=== PATIENT | female | born 1940 | race Caucasian/White ===

== ENCOUNTER 2017-12-25 08:57 | Outpatient (CLI) | payer MEDICARE, OTHER ==
--- NOTE | 2017-12-26 14:11 | DEXA Report ---
EXAM: DEXA SCAN 12/25/2017 INDICATION: Postmenopausal. TECHNIQUE: Dual energy x-ray absorptiometry (DXA) was performed on a [employer] system. Regions measured are the AP spine, femoral neck, and, if needed, forearm. COMPARISON: None. In accordance with the International Society for Clinical Densitometry (ISCD) guidelines, data from previous exams may be reanalyzed using current recommendations and techniques. This is done to allow a more accurate basis for comparison with the current study. FINDINGS Data for the lumbar spine is as follows: REGION BMD (g/cm/cm) T-SCORE Z-SCORE L1 0.715 -3.5 -1.5 L2 0.831 -3.1 -1.1 L3 0.810 -3.2 -1.3 L4 1.003 -1.6 0.3 L1-L4 0.861 -2.7 -0.7 NOTE: All evaluable vertebrae are used for classification. Data for the hip is as follows: REGION BMD (g/cm/cm) T-SCORE Z-SCORE Neck 0.665 -2.7 -0.5 TOTAL 0.691 -2.5 -0.5 NOTE: The femoral neck or total proximal femur, whichever is lowest, is used for classification. IMPRESSION WHO CLASSIFICATION BASED ON THE INTERNATIONAL REFERENCE STANDARD IS OSTEOPOROSIS. FRACTURE RISK IS HIGH. RECOMMENDATION: Patients with diagnosis of osteoporosis or osteopenia should have regular bone mineral density assessment. For those eligible for Medicare, routine testing is allowed once every 2 years. Testing frequency can be increased for patients who have rapidly progressing disease or for those who are receiving medical therapy to restore bone mass. COMMENT World Health Organization (WHO) definitions for osteoporosis and osteopenia: NORMAL BMD: T-score at 1.0 or higher, fracture risk is low. OSTEOPENIA BMD: T-score between 1.0 and -2.5, fracture risk is increased. OSTEOPOROSIS BMD: T-score at 2.5 or lower, fracture risk high. National Osteoporosis Foundation recommends: 1. Obtain adequate dietary calcium (at least 1200 mg per day) and vitamin D (400 -800 international units per day). 2. Participate, as appropriate, in regular weightbearing and muscle- strengthening exercise. 3. Avoid tobacco use and reduce alcohol and caffeine intake. 4. For more detailed information see the website at www.NOF.org. TD: 12/25/2017 14:28 MTDD
== END 2017-12-25 08:58 | disposition home or self-care (01) ==
LOC: RT 08:57
PROVIDERS: ATTEND Internal Medicine
DX: Z13.820 Encounter for screening for osteoporosis (principal); M81.0 Age-related osteoporosis without current pathological fracture; Z78.0 Asymptomatic menopausal state; J45.909 Unspecified asthma, uncomplicated
CPT/HCPCS: 77080; 94010

== ENCOUNTER 2018-05-16 13:32 | Outpatient (CLI) | payer MEDICARE, OTHER ==
--- NOTE | 2018-05-19 14:32 | Mammography Report ---
Reason: ROUTINE MAMMO, HX BREAST CA Procedure Date: 05/16/2018 Accession Number: [id number] / [id number] Procedure: INDRA - Screening Mammo Dig Bilat CPT Code: FULL RESULT: EXAM: Screening Mammo Dig Bilat DATE: 05/16/2018 2:41 PM CLINICAL HISTORY: 77-year-old female with right breast stage I breast cancer status post lumpectomy. TECHNIQUE: Bilateral CC and MLO views were obtained. COMPARISON: 04/19/2016, 04/08/2014, 05/11/2013, 06/21/2012. FINDINGS: The breasts demonstrate heterogeneously dense fibroglandular parenchyma bilaterally. Postsurgical changes are seen in the bilateral breasts, typically benign. Typically benign coarse calcifications are also identified bilaterally. No suspicious masses, clustered microcalcifications, or regions of architectural distortion are identified. IMPRESSION: Benign findings RECOMMENDATION: Routine annual screening unless otherwise clinically indicated. BIRADS CATEGORY 2: Benign findings STANDARD QUALIFYING STATEMENTS: 1. This examination was reviewed without the aid of Computer-Aided Detection (CAD). 2. A negative or benign imaging report should not delay biopsy if clinically suspicious findings are present. Consider surgical consultation if warrented. More than 5% of cancers are not identified by imaging. 3. Dense breasts may obscure an underlying neoplasm.
== END 2018-05-16 13:33 | disposition home or self-care (01) ==
LOC: DI 13:32
PROVIDERS: ATTEND Internal Medicine
DX: Z12.31 Encounter for screening mammogram for malignant neoplasm of breast (principal); Z85.3 Personal history of malignant neoplasm of breast
CPT/HCPCS: 77067

== ENCOUNTER 2018-11-06 07:02 | Outpatient (CLI) | payer MEDICARE, OTHER ==
--- NOTE | 2018-11-06 13:37 | Ultrasound Report ---
Reason: OTHER SPECIFIED ABNORMAL UTERINE AND VAGINAL BLEED Procedure Date: 11/06/2018 Accession Number: [id number] / [id number] Procedure: US - Pelvic w/Transvaginal CPT Code: FULL RESULT: EXAM: PELVIC ULTRASOUND EXAM DATE: 11/06/2018 07:27 AM. CLINICAL HISTORY: Other specified abnormal uterine and vaginal bleed. COMPARISON: None. TECHNIQUE: Realtime transabdominal pelvic scan performed to identify the uterus and adnexa and as an overview of other pelvic structures, followed by transvaginal scan to provide greater detail of the uterus and adnexa, with static image documentation. FINDINGS: Uterus: 10.9 x 6.3 x 6.8 cm, volume 245 cc. Anteverted position. Normal overall size and echotexture of the myometrium. Masses: None. Endometrium: There is a complex cystic and solid 6.3 x 4.9 x 5.0 cm mass replacing the endometrium, flow is seen peripherally by color Doppler. Cervix: Unremarkable. The ovaries were not seen. Free Fluid: None. Other: None. IMPRESSION: Complex cystic and solid endometrial mass as described. PHILLIP The call report notification system was initiated by Dr. Cleve Garza at 01:26 PM on 11/06/2018. ADDENDUM: 11/06/18 13:54 The above call report findings were discussed with Dr. Chin by Dr. Cleve Garza at 01:54 PM on 11/06/2018.
== END 2018-11-06 07:03 | disposition home or self-care (01) ==
LOC: DI 07:02
PROVIDERS: ATTEND Specialist
DX: N85.9 Noninflammatory disorder of uterus, unspecified (principal); N85.8 Other specified noninflammatory disorders of uterus
CPT/HCPCS: 76830; 76856

== ENCOUNTER 2018-12-01 10:19 | Outpatient (CLI) | payer MEDICARE, OTHER | END 2018-12-01 10:20 | disposition home or self-care (01) | LOC: RT 10:19 | PROVIDERS: ATTEND Obstetrics & Gynecology Gynecologic Oncology | DX: Z01.810 Encounter for preprocedural cardiovascular examination (principal); N85.9 Noninflammatory disorder of uterus, unspecified; N95.0 Postmenopausal bleeding ==

== ENCOUNTER 2024-03-10 14:36 | Outpatient (CLI) | payer MEDICARE ==
--- NOTE | 2024-03-10 15:46 | XRAY Report ---
PROCEDURE: Chest 2V INDICATIONS: COUGH TECHNIQUE: 2 views of the chest were acquired. COMPARISON: CT chest 04/19/2016 FINDINGS: Surgical changes and devices: None. Lungs and pleura: No pleural effusions or pneumothorax. Lungs are clear. Mediastinum: Mediastinal contours appear normal. Heart size is normal. Bones and chest wall: No suspicious bony lesions. Overlying soft tissues appear unremarkable. IMPRESSION: No acute cardiopulmonary process. Reviewed by: Yeni Hester MD on 03/10/2024 3:45 PM PDT Approved by: Yeni Hester MD on 03/10/2024 3:45 PM PDT Station ID: [id number]
== END 2024-03-10 14:37 | disposition home or self-care (01) ==
LOC: DI 14:36
PROVIDERS: ATTEND Student in an Organized Health Care Education/Training Program
DX: R05.9 Cough, unspecified (principal)

== ENCOUNTER 2024-03-17 08:00 | Outpatient (CLI) | payer MEDICARE | END 2024-03-17 23:59 | disposition home or self-care (01) | LOC: LAB.N 08:00 | PROVIDERS: ATTEND Family Medicine | DX: R05.9 Cough, unspecified (principal) ==

== ENCOUNTER 2024-07-20 09:46 | Inpatient (IN) ==
[2024-07-20] MEDS: DEXAMETHASONE 10 MG/ML VIAL IVP STA (09:55)
[2024-07-20 10:04] LABS: BASOPHILS # (AUTO) 0.1 10^3/uL (0.0-0.1); BASOPHILS % (AUTO) 0.7 %; EOSINOPHILS # (AUTO) 1.1 10^3/uL (0.0-0.7); HCT - HEMATOCRIT 37.8 % (37.0-47.0); HGB - HEMOGLOBIN 13.1 g/dL (12.0-16.0); LYMPHOCYTES # (AUTO) 1.2 10^3/uL (1.5-3.5); LYMPHOCYTES % (AUTO) 8.8 %; MEAN CORPUSCULAR HEMOGLOBIN 31.6 pg (27.0-31.0); MEAN CORPUSCULAR HGB CONC 34.7 g/dL (32.0-36.0); MEAN CORPUSCULAR VOLUME 91.3 fL (81.0-99.0); MEAN PLATELET VOLUME 9.2 fL (7.9-10.8); MONOCYTES # (AUTO) 0.9 10^3/uL (0.0-1.0); MONOCYTES % (AUTO) 6.6 %; NEUTROPHILS # (AUTO) 10.2 10^3/uL (1.5-6.6); NEUTROPHILS % (AUTO) 75.3 %; PLT - PLATELET COUNT 291 10^3/uL (130-450); RED BLOOD COUNT 4.14 10^6/uL (4.20-5.40); WHITE BLOOD COUNT 13.6 x10^3/uL (4.8-10.8)
--- NOTE | 2024-07-20 10:11 | XRAY Report ---
PROCEDURE: XR Chest 1V INDICATIONS: DYSPNEA TECHNIQUE: One view of the chest was acquired. COMPARISON: Chest x-ray 07/16/2024 FINDINGS: Surgical changes and devices: None. Lungs and pleura: No pleural effusions or pneumothorax. Lungs are clear. Mediastinum: Aortic arch calcifications. Mediastinal contours otherwise appear normal. Heart size is normal. Bones and chest wall: Diffuse osseous demineralization. Right axillary surgical clips. Left breast s urgical clips. IMPRESSION: No acute cardiothoracic process. Reviewed by: Siddharth Tran MD on 07/20/2024 10:10 AM [facility] Approved by: Siddharth Tran MD on 07/20/2024 10:10 AM [facility] Station ID: [id number]
[2024-07-20 10:20] LABS: RBC MORPHOLOGY (MULTIPLE) 1+ ANISOCYTOSIS (NORMAL); SLIDE REVIEW? Indicated
[2024-07-20 10:22] LABS: ALBUMIN 4.1 g/dL (3.2-5.5); ALBUMIN/GLOBULIN RATIO 1.6 (1.0-2.2); BILIRUBIN,TOTAL 0.5 mg/dL (0.2-1.0); CALCIUM 9.2 mg/dL (8.5-10.3); CREATININE 0.6 mg/dL (0.6-1.3); TOTAL PROTEIN 6.7 g/dL (6.4-8.9)
[2024-07-20 10:32] LABS: ABG PH 7.49 (7.35-7.45)
[2024-07-20 10:33] LABS: ABG BASE EXCESS 0.6 mmol/L (-2.0-3.0); ABG OXYGEN SATURATION 89 % (94-98); ABG PCO2 31 mmHg (34-45); ABG PO2 51 mmHg (80-100); ABG TCO2 23.9 MMOL/L (21.0-29.0)
[2024-07-20] MEDS ORDERED: iohexoL-300 100 ML VIAL ONE (10:50)
[2024-07-20 11:08] LABS: B. PARAPERTUSSIS- RESP PCR PAN NOT DETECTED; B. PERTUSSIS- RESP PCR PANEL NOT DETECTED; C. PNEUMONIAE- RESP PCR PANEL NOT DETECTED; CORONAVIRUS 229E-RESP PCR NOT DETECTED; CORONAVIRUS HKU1-RESP PCR NOT DETECTED; CORONAVIRUS NL63-RESP PCR NOT DETECTED; CORONAVIRUS OC43-RESP PCR NOT DETECTED; HUMAN METAPNEUMOVIRUS NOT DETECTED; INFLUENZA A- RESP PCR PANEL NOT DETECTED; INFLUENZA B - RESP PCR PANEL NOT DETECTED; M. PNEUMONIAE- RESP PCR PANEL NOT DETECTED; PARAINFLUENZA VIRUS 1 NOT DETECTED; PARAINFLUENZA VIRUS 2 NOT DETECTED; PARAINFLUENZA VIRUS 3 NOT DETECTED; PARAINFLUENZA VIRUS 4 NOT DETECTED; RHINOVIRUS/ENTEROVIRUS NOT DETECTED; RSV- RESP PCR PANEL NOT DETECTED; SARS-CoV-2 -RESP PCR PANEL NOT DETECTED
--- NOTE | 2024-07-20 12:05 | HISTORY & PHYSICAL EXAMINATION ---
Chief Complaint <VAMSI Antonio - Last Filed: 07/20/24 17:12> Chief Complaint Chief Complaint: I can't breathe History of Present Illness <VAMSI Antonio - Last Filed: 07/20/24 17:12> Admitted From Admitted From:: ED History Obtained From Records Reviewed: outpatient [facility] records, last ED visit History obtained from: Patient Exam Limitations: none History of Present Illness HPI Comment/Other: Presents to the emergency department for the second time inside of a week with complaints of shortness of breath. She has been struggling with a cough for about 6 months. She states that she has been getting increasingly more short of breath and having more and more cough at home. Several different courses of steroids have been prescribed. It is not clear that she has taken all of them. I think she does not like the way the steroids make her feel. She has been compliant with her albuterol and Advair at home. She has a referral in progress to pulmonology. She has not gotten this appointment scheduled. At home she has been having worsening dyspnea which is worse on exertion. She is able to lay down and get comfortable at night She has never smoked in her lifetime. For CODE STATUS she is DNR/DNI. Her daughter who lives in [place] is her surrogate decision-maker Meds/Allgy <VAMSI Antonio - Last Filed: 07/20/24 17:12> Home Medications Ambulatory Orders Medication Instructions Recorded Confirmed ipratropium 0.5 mg-albuterol 3 mg 3 ml inhalation QID PRN shortness 07/16/24 07/20/24 (2.5 mg base)/3 mL nebulization of breath #90 mL soln albuterol sulfate 2.5 mg/3 mL 2.5 mg inhalation Q4H PRN 07/17/24 07/20/24 (0.083 %) solution for nebulization shortness of breath or wheezing albuterol sulfate 90 mcg/actuation 1 puff inhalation QID PRN 07/17/24 07/20/24 aerosol inhaler shortness of breath or wheezing fluticasone propionate 115 2 puff inhalation DAILY 07/17/24 07/20/24 mcg-salmeterol 21 mcg/actuation HFA inhaler (Advair HFA) carbamazepine 300 mg 300 mg PO DAILY 07/20/24 07/20/24 capsule,extended release [id number] fluticasone propionate 50 2 spray intranasal BID 07/20/24 07/20/24 mcg/actuation nasal spray,suspension Allergies Allergies Allergy/AdvReac Type Severity Reaction Status Date / Time No Known Drug Allergies Allergy Verified 07/20/24 09:53 PFSH <VAMSI Antonio - Last Filed: 07/20/24 17:12> Medical History Medical History (Updated 07/20/24 @ 12:49 by VAMSI Antonio) Trigeminal neuralgia History of melanoma History of Mohs micrographic surgery for skin cancer History of breast cancer Asthma History of rheumatic fever as a child Surgical History Surgical History (Updated 07/16/24 @ 10:24 by Kristina Peralta RN) History of hysterectomy History of mastectomy Family History Family History (Updated 07/17/24 @ 07:32 by Sg Jeorme) Mother Colon cancer Brother Lung cancer Father Heart attack Social History Social History (Updated 07/20/24 @ 12:35 by VAMSI Antonio) Smoking Status: Never smoker Second hand tobacco smoke exposure: No Do you dip or chew tobacco?: No Do you vape?: No Relationship: Level: Assisted Home Mobility Equipment: Wheeled walker Do you feel safe in your home environment?: Yes Suffered physical, verbal, emotional, or financial abuse?: No POLST Patient has POLST: No POLST Status: DNR Review of Systems <VAMSI Antonio - Last Filed: 07/20/24 17:12> Status of ROS: 10 or more systems reviewed and unremarkable except as noted in history and below Constitutional Reports: Fatigue, Malaise and Poor appetite; Denies: Fever or Chills Eyes Denies: Change in vision or Eye discharge Ears, nose, mouth, and throat Denies: Ear pain, Tinnitus, Change in hearing, Nasal discharge or Neck pain Cardiovascular Reports: shortness of breath with exertion; Denies: Irregular heart rate, chest pain or palpitations Respiratory Reports: Shortness of breath, Cough, SOB with exertion and Chest congestion Gastrointestinal Reports: Nausea and Poor appetite; Denies: Abdominal pain or Vomiting Genitourinary Denies: Painful urination Musculoskeletal Denies: Back pain or Neck pain Integumentary/Breast Reports: Rash Neurological Denies: Headache Psychiatric Denies: Depression Endocrine Reports: Fatigue <VAMSI Antonio - Last Filed: 07/20/24 17:12> Prior Level of Functionality: She lives independently in her own apartment here in [place]. She is an active member of [employer]. She has a daughter who lives in [place] and is able to help her when she needs it. Exam <VAMSI Antonio - Last Filed: 07/20/24 17:12> Constitutional normal general appearance HENMT normocephalic Eyes PERRL, conjunctivae normal and no scleral icterus Neck/C-Spine visual inspection normal Lymph no lymphadenopathy noted Chest inspection of chest normal and palpation of chest normal Respiratory breath sounds equal bilaterally, no wheezes (diffuse wheeze) and no retractions Cardiovascular normal heart rate noted (tachycardia, low 100's) and peripheral pulses 2+ throughout Gastrointestinal abdomen normal to inspection and nondistended Extremities normal to inspection Neurology no movement abnormality noted, no focal motor deficit noted and GCS 15 Psychiatry mental status grossly normal and oriented x3 Skin skin color normal Conclusion/Plan <VAMSI Antonio - Last Filed: 07/20/24 17:12> Problem List (1) Acute hypoxic respiratory failure: Plan: Patient was discussed with Dr Chandra, ED attending. She has had multiple outpatient encounters for cough and shortness of breath. Looking back through her vital signs, it appears that she has always maintained her oxygen saturation on room air. However today this is not the case. Today she is on 13 L via Oxymizer when I walk in the room. I am able to turn it down to 11 L and have a conversation with her and her sats did not drop drop below 92%. When she came into the emergency department today she was able to maintain an O2 sat of 90% on 4 L via nasal cannula. I do not have any information on what her oxygen saturation was at the time that EMS picked her up. Laboratory Tests 07/20/24 10:15 ABG pH 7.49 H ABG pCO2 31 L ABG pO2 51 L ABG HCO3 23.0 ABG O2 Saturation 89 L O2 Delivery Device NASAL CANNULA O2 Liters/Min 3.50 (2) Pneumonia: Plan: CTA of the thorax done 4 days ago shows new or increased moderate to severe diffuse upper and lower peribronchial heel thickening with multiple areas of bronchial feeling, mucus filling and associated diffuse upper and lower groundglass opacities. Given her current leukocytosis of 13.6 and her hypoxia I think it is reasonable to treat her for a community-acquired pneumonia. Given that we are experiencing a national shortage of IV fluids and fluid bags I will treat her with p.o. antibiotics of Augmentin 875 twice daily and azithromycin 500 mg daily, 5 and 3 days respectively. Qualifiers: Laterality: bilateral Lung location: unspecified part of lung P neumonia type: due to unspecified organism Qualified Code(s): J18.9 - Pneumonia, unspecified organism (3) COPD exacerbation: Plan: differential diagnosis would be CHF exacerbation. Her BNP 4 days ago was 60. I am going to add on a BNP to today's emergency department labs. She denies any cardiac history. She does not have a history of heart attack she did have rheumatic fever as a child but denies any history of valvular abnormalities. On her lung exam she has diffuse wheezing. Looking back at her EKGs, her EKG done on 07/16/2024 shows incomplete left bundle branch block with new onset of LVH as compared to 12/01/2018. I will repeat her BNP. Additionally I will repeat a troponin. However I think this is likely primarily a pulmonary process. (4) Trigeminal neuralgia: Plan: This is a chronic problem. She takes carbamazepine for this. We will continue her home carbamazepine. 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 She has done well. Of course metastatic breast cancer is in the differential diagnosis for her lungs, however CT a shows no lesion (6) Hyponatremia: Plan: Sodium of 128 probably related to her acute illness. I do not see any history of hyponatremia. I will start her on a regular diet and recheck her sodium in the morning. Plan I have spent 80 minutes in the care of this patient today. This includes time [id number], review and ordering of diagnostic imaging and laboratory studies and consultation with other providers.. Monitoring the patient's signs symptoms, evaluation of medication effectiveness and patient's response to treatment. Lab Results Lab results reviewed: Yes 07/20/24 09:58 07/20/24 09:58 Diagnostic Imaging Results Diagnostic Imaging Results: positive Final report reviewed Diagnostic Imaging Results Comments: CTA of the chest 07/16/2024. Chest x-ray today no acute pulmonary process Of note the patient's clinical picture appears more severe than her data would suggest EKG Results EKG Interpreted Independently: No EKG Comparison: Changed from prior EKG EKG Findings: New left bundle branch block and new LVH as compared to 2019. <Ewa Mcguire MD - Last Filed: 07/20/24 19:58> Problem List (1) Acute hypoxic respiratory failure: (2) Pneumonia: (3) COPD exacerbation: (4) Trigeminal neuralgia: (5) History of breast cancer: (6) Hyponatremia: Core Measures <VAMSI Antonio - Last Filed: 07/20/24 17:12> Anticipated LOS I expect patient to be DC'd or transferred within 96 hours.: Yes Issues Hospital Issues and Management Plan: Acute hypoxic respiratory failure, COPD exacerbation, community-acquired pneumonia Antibiotics respiratory support steroids bronchodilators DVT/VTE - Prophylaxis VTE/DVT Device ordered at admit?: Yes VTE/DVT Prophylaxis med ordered at admit?: Yes
[2024-07-20] MEDS ORDERED: oxyCODONE 5 MG TABLET PO PRN (12:38)
[2024-07-20] MEDS: IBUPROFEN 400 MG TABLET PO PRN (13:32)
[2024-07-20] MEDS: AMOX/CLAV 875 MG/125 MG TABLET PO SCH (13:32)
[2024-07-20] MEDS: BENZONATATE 100 MG CAPSULE PO PRN (13:33)
[2024-07-20] MEDS: ACETAMINOPHEN 325 MG TABLET PO PRN (13:33)
[2024-07-20] MEDS: AZITHROMYCIN 250 MG TABLET PO SCH (13:33)
[2024-07-20] MEDS: IPRATROPIUM/ALBUTEROL 3 ML NEB INH SCH (14:13)
--- NOTE | 2024-07-20 14:23 | ED Physician Documentation ---
History of Present Illness Stated complaint Stated Complaint: SOA Chief complaint Chief Complaint: Resp History obtained from History obtained from: Patient and EMS Additonal information Additional information: The patient comes to the emergency department chief complaint of dyspnea. She was diagnosed with pneumonia several days ago but feels like she is getting worse. She has a history of COPD but does not use supplemental oxygen at home. She states right now, she is just feeling dyspneic all the time. Medics state when they picked her up her oxygen saturation was 84% on room air. They tried giving her a nebulizer treatment en route them but the patient states these have not been helping. Meds/Allgy Home Medications Ambulatory Orders Medication Instructions Recorded Confirmed ipratropium 0.5 mg-albuterol 3 mg 3 ml inhalation QID PRN shortness 07/16/24 07/20/24 (2.5 mg base)/3 mL nebulization of breath #90 mL soln albuterol sulfate 2.5 mg/3 mL 2.5 mg inhalation Q4H PRN 07/17/24 07/20/24 (0.083 %) solution for nebulization shortness of breath or wheezing albuterol sulfate 90 mcg/actuation 1 puff inhalation QID PRN 07/17/24 07/20/24 aerosol inhaler shortness of breath or wheezing fluticasone propionate 115 2 puff inhalation DAILY 07/17/24 07/20/24 mcg-salmeterol 21 mcg/actuation HFA inhaler (Advair HFA) carbamazepine 300 mg 300 mg PO DAILY 07/20/24 07/20/24 capsule,extended release [id number] fluticasone propionate 50 2 spray intranasal BID 07/20/24 07/20/24 mcg/actuation nasal spray,suspension Allergies Allergies Allergy/AdvReac Type Severity Reaction Status Date / Time No Known Drug Allergies Allergy Verified 07/20/24 09:53 [facility] Medical History Medical History (Updated 07/20/24 @ 12:49 by VAMSI Antonio) Trigeminal neuralgia History of melanoma History of Mohs micrographic surgery for skin cancer History of breast cancer Asthma History of rheumatic fever as a child Surgical History Surgical History (Updated 07/16/24 @ 10:24 by Kristina Peralta RN) History of hysterectomy History of mastectomy Family History Family History (Updated 07/17/24 @ 07:32 by Sg Jerome) Mother Colon cancer Brother Lung cancer Father Heart attack Social History Social History (Updated 07/20/24 @ 12:35 by VAMSI Antonio) Smoking Status: Never smoker Second hand tobacco smoke exposure: No Do you dip or chew tobacco?: No Do you vape?: No Relationship: Level: Assisted Home Mobility Equipment: Wheeled walker Do you feel safe in your home environment?: Yes Suffered physical, verbal, emotional, or financial abuse?: No POLST Patient has POLST: No POLST Status: DNR Exam Constitutional normal general appearance Moderate respiratory distress otherwise well-appearing HENMT normocephalic, head/scalp atraumatic, external nose normal and oral mucous membranes normal Eyes EOMs intact bilaterally Neck/C-Spine visual inspection normal and supple Respiratory breath sounds equal bilaterally and clear to auscultation bilaterally Moderately labored respirations. The patient arrives on a neb. Breath sounds are clear. Cardiovascular normal heart rate noted, regular rhythm noted and no edema Gastrointestinal abdomen normal to inspection, abdomen soft to palpation, nontender to palpation and nondistended Genitourinary no CVA tenderness Extremities normal to inspection Neurology Alert, grossly intact Psychiatry mental status grossly normal Skin skin color normal Results Vitals Vitals: Oxygen O2 Source Oxymizer Oxygen Flow Rate 7 Labs Labs: Laboratory Tests 07/20/24 07/20/24 07/20/24 09:58 10:08 10:15 WBC 13.6 H RBC 4.14 L Hgb 13.1 Hct 37.8 MCV 91.3 MCH 31.6 H MCHC 34.7 RDW 12.0 Plt Count 291 MPV 9.2 Neut # (Auto) 10.2 H Lymph # (Auto) 1.2 L Chaves # (Auto) 0.9 Eos # (Auto) 1.1 H Baso # (Auto) 0.1 Absolute Nucleated RBC 0.00 Nucleated RBC % 0.0 Manual Slide Review Indicated RBC Morph Micro Appear 1+ ANISOCYTOSIS Bld Gas Analysis Time 1015 Sample Site RIGHT BRACHIAL ABG pH 7.49 H ABG pCO2 31 L ABG pO2 51 L ABG HCO3 23.0 ABG Total CO2 23.9 ABG O2 Saturation 89 L ABG Base Excess 0.6 Luis Carlos Test NOT APPLICABLE O2 Delivery Device NASAL CANNULA O2 Liters/Min 3.50 Sodium 128 L Potassium 4.0 Chloride 94 L Carbon Dioxide 26 Anion Gap 8.0 BUN 12 Creatinine 0.6 Estimated GFR (MDRD) 95 Glucose 123 H Calcium 9.2 Total Bilirubin 0.5 AST 14 ALT 14 Alkaline Phosphatase 83 Troponin I High Sens 10.7 B-Natriuretic Peptide 30 Total Protein 6.7 Albumin 4.1 Globulin 2.6 Albumin/Globulin Ratio 1.6 Lipase 12 Nasal Adenovirus (PCR) NOT DETECTED Nasal B. parapertussis DNA (PCR) NOT DETECTED Nasal Coronavir 229E PCR NOT DETECTED Nasal Coronavir HKU1 PCR NOT DETECTED Nasal Coronavir NL63 PCR NOT DETECTED Nasal Coronavir OC43 PCR NOT DETECTED Nasal Enterovir/Rhinovir PCR NOT DETECTED Nasal Influenza B PCR NOT DETECTED Nasal Influenza A PCR NOT DETECTED Nasal Parainfluen 1 PCR NOT DETECTED Nasal Parainfluen 2 PCR NOT DETECTED Nasal Parainfluen 3 PCR NOT DETECTED Nasal Parainfluen 4 PCR NOT DETECTED Nasal RSV (PCR) NOT DETECTED Nasal B.pertussis DNA PCR NOT DETECTED Nasal C.pneumoniae (PCR) NOT DETECTED Omkar Human Metapneumo PCR NOT DETECTED Nasal M.pneumoniae (PCR) NOT DETECTED Nasal SARS-CoV-2 (PCR) NOT DETECTED PD Medical Decision Making ED course Complexity details: reviewed old records, reviewed results, re-evaluated patient, considered differential and d/w patient ED course: The patient was well-dressed and though her respirations were somewhat labored, her lungs were clear. She was found to have an oxygen saturation on 8 L of oxygen with 84%. The patient did not appear as ill as her numbers and so I ordered an ABG to gain clarity on the Oxygen saturation we were getting on the monitor. The patient was switched to an oxime mask by respiratory therapy and oxygen saturations did stabilize a bit into the low to mid 90s. The patient's x-ray was surprisingly unremarkable and I suspected perhaps a COPD exacerbation. Patient's labs were also unremarkable. The patient reported feeling better on the oxime mask. The ABG supported the numbers we are getting on the certified rehabilitation counselor. I discussed the case with Dr. Mcguire and VAMSI Antonio, who agreed to admit the patient to their service. Discharge Plan Discharge Patient Disposition: [facility] DC/Xfer Interventions: ED Admission Assessment Last Done: 07/20/24 15:50
--- NOTE | 2024-07-20 15:27 | PHARMACY PROGRESS NOTE ---
Best Possible Medication History Admit Date and Time: 07/20/24 1203 Home Medications Medication Instructions Recorded Confirmed Type ipratropium 0.5 mg-albuterol 3 mg 3 ml inhalation QID PRN shortness 07/16/24 07/20/24 Rx (2.5 mg base)/3 mL nebulization of breath #90 mL soln albuterol sulfate 2.5 mg/3 mL 2.5 mg inhalation Q4H PRN 07/17/24 07/20/24 History (0.083 %) solution for nebulization shortness of breath or wheezing albuterol sulfate 90 mcg/actuation 1 puff inhalation QID PRN 07/17/24 07/20/24 History aerosol inhaler shortness of breath or wheezing fluticasone propionate 115 2 puff inhalation DAILY 07/17/24 07/20/24 History mcg-salmeterol 21 mcg/actuation HFA inhaler (Advair HFA) carbamazepine 300 mg 300 mg PO DAILY 07/20/24 07/20/24 History capsule,extended release [id number] fluticasone propionate 50 2 spray intranasal BID 07/20/24 07/20/24 History mcg/actuation nasal spray,suspension Processed by: Pharmacy Medications reviewed in ED?: Yes Medication History completed: Yes Patient Interview: Completed (by nail technicianJesus) Secondary Source(s): Insurance records [facility] Statement: As the person ultimately responsible for medication therapy, providers are able to order a medication from an existing home medication list in [facility] via the "Reconcile Routine" prior to Confirmation of that medication by data support specialist. Such practice is discouraged except when the physician, in their clinical judgment, deems that a medical need exists for a medication without regard to previous use.
[2024-07-20] MEDS: guaiFENesin 600 MG TABLET PO SCH (20:27)
[2024-07-20] MEDS: HEPARIN 5,000 UNIT/ML VIAL SUBQ SCH (20:27)
[2024-07-20] MEDS: SODIUM CHLORIDE FLUSH 0.9% 10 ML SYRINGE IVP SCH (20:29)
[2024-07-21 05:32] LABS: BASOPHILS # (AUTO) 0.1 10^3/uL (0.0-0.1); BASOPHILS % (AUTO) 0.5 %; EOSINOPHILS # (AUTO) 0.6 10^3/uL (0.0-0.7); EOSINOPHILS % (AUTO) 4.8 %; HCT - HEMATOCRIT 36.5 % (37.0-47.0); HGB - HEMOGLOBIN 12.4 g/dL (12.0-16.0); LYMPHOCYTES # (AUTO) 2.2 10^3/uL (1.5-3.5); LYMPHOCYTES % (AUTO) 18.3 %; MEAN CORPUSCULAR HEMOGLOBIN 31.3 pg (27.0-31.0); MEAN CORPUSCULAR VOLUME 92.2 fL (81.0-99.0); MEAN PLATELET VOLUME 9.1 fL (7.9-10.8); MONOCYTES % (AUTO) 8.3 %; NEUTROPHILS # (AUTO) 8.1 10^3/uL (1.5-6.6); NEUTROPHILS % (AUTO) 67.6 %; PLT - PLATELET COUNT 311 10^3/uL (130-450); RED BLOOD COUNT 3.96 10^6/uL (4.20-5.40)
[2024-07-21 05:53] LABS: CALCIUM 8.9 mg/dL (8.5-10.3); CREATININE 0.6 mg/dL (0.6-1.3); POTASSIUM 3.7 mmol/L (3.5-4.5)
[2024-07-21] MEDS: dexAMETHasone 4 MG TABLET PO SCH (08:26)
[2024-07-21] MEDS: CARBAMAZEPINE 300 MG PO SCH (09:00)
--- NOTE | 2024-07-21 09:19 | PROVIDER PROGRESS NOTE ---
Subjective Prog Note Date Prog Note Date: 07/21/24 Prog Note Time: 09:12 Subjective Subjective: She got up to the bathroom this morning and she was very very short of breath.She is having difficulty eating with Oxymizer in place. She is still on a flow rate of 7 L. OVer the course of today she has weaned off to 4L NC. She feels tired, but is getting better. She has a productive cough. When I saw her yesterday evening she said she felt like this place is a spa. I think she has been struggling so long in the outpatient environment that having comfort and treatment for her hypoxia is a great relief. Current Medications Current Medications Current Medications: Current Medications Generic Name Dose Route Start Last Admin Trade Name Freq PRN Reason Stop Dose Admin Acetaminophen 650 mg 07/20/24 12:38 07/21/24 08:26 Acetaminophen 325 Mg Tablet PO 650 mg Q4HR PRN Administration Pain 1 to 4, or Fever Albuterol 2.5 mg 07/20/24 12:38 Albuterol Neb 2.5 Mg/3 Ml INH Q4H PRN shortness of breath or wheezing Albuterol/Ipratropium 3 ml 07/20/24 15:00 07/21/24 06:49 Ipratropium/Albuterol 3 Ml Neb INH 3 ml RTQID STAS Administration Amoxicillin/Clavulanate Potassium 1 tab 07/20/24 12:03 07/21/24 08:25 Amox/Clav 875 Mg/125 Mg Tablet PO 07/24/24 21:01 1 tab BID STAS Administration Azithromycin 500 mg 07/20/24 12:03 07/21/24 08:25 Azithromycin 250 Mg Tablet PO 07/22/24 09:01 500 mg DAILY STAS Administration Benzonatate 100 mg 07/20/24 12:38 07/21/24 08:26 Benzonatate 100 Mg Capsule PO 100 mg TID PRN Administration Cough Dexamethasone 6 mg 07/21/24 09:00 07/21/24 08:26 Dexamethasone 4 Mg Tablet PO 07/24/24 09:01 6 mg DAILY STAS Administration Guaifenesin 1,200 mg 07/20/24 21:00 07/21/24 08:25 Guaifenesin 600 Mg Tablet PO 1,200 mg BID STAS Administration Heparin Sodium (Porcine) 5,000 unit 07/20/24 21:00 07/21/24 08:25 Heparin 5,000 Unit/Ml Vial SUBQ 5,000 unit BID STAS Administration Ibuprofen 400 mg 07/20/24 12:38 07/21/24 08:26 Ibuprofen 400 Mg Tablet PO 400 mg Q4HR PRN Administration Pain 1 to 4 Ondansetron HCl 4 mg 07/20/24 12:38 Ondansetron Odt 4 Mg Tablet TL Q6HR PRN Nausea / Vomiting Oxycodone HCl 5 mg 07/20/24 12:38 Oxycodone 5 Mg Tablet PO Q4HR PRN Pain 5 to 7 Carbamazepine 300 1 each 07/21/24 09:00 07/21/24 09:00 Mg Er Multiphase 12 PO 1 each Hr Tab DAILY STAS Administration Sodium Chloride 10 ml 07/20/24 12:38 Sodium Chloride Flush 0.9% 10 Ml Syringe IVP PRN PRN NEEDED PER PROVIDER ORDERS Sodium Chloride 10 ml 07/20/24 17:00 07/21/24 08:27 Sodium Chloride Flush 0.9% 10 Ml Syringe IVP 10 ml 0100,0900,1700 STAS Administration Objective Vital Signs/Intake & Output Reviewed Vital Signs: Yes Vital Signs: Vital Signs x48h Temp Pulse Pulse Resp BP Pulse Ox O2 Flow Rate 07/21/24 08:11 36.6 C 91 H 18 136/65 H 95 7 07/21/24 06:50 7 07/21/24 06:50 92 H 22 07/21/24 05:00 36.7 C 72 20 138/68 H 98 7 Intake & Output: Intake & Output 07/19/24 07/20/24 07/21/24 07/22/24 05:59 05:59 05:59 05:59 Intake Total 892 / 892 Balance 892 / 892 Weight (kg) 54.1 kg Objective General Appearance: positive No acute distress and Alert Eyes Bilateral: positive Normal inspection and PERRL ENT: positive ENT inspection nml and No signs of dehydration Neck: positive Nml inspection Respiratory: positive Chest non-tender, No respiratory distress, Wheezes (throughout, but less at bases (less air movement at bases)) and Rhonchi Cardiovascular: positive Regular rate & rhythm Abdomen: positive Non-tender and No distention Back: positive Nml inspection Skin: positive Color nml Extremities: positive Non-tender and No pedal edema Lab Results 07/21/24 05:13 07/21/24 05:13 Other Labs: Lab Results x24hrs 07/21/24 07/20/24 07/20/24 Range/Units 05:13 10:15 10:08 WBC 12.0 H (4.8-10.8) x10^3/uL RBC 3.96 L (4.20-5.40) 10^6/uL Hgb 12.4 (12.0-16.0) g/dL Hct 36.5 L (37.0-47.0) % MCV 92.2 (81.0-99.0) fL MCH 31.3 H (27.0-31.0) pg MCHC 34.0 (32.0-36.0) g/dL RDW 12.0 (12.0-15.0) % Plt Count 311 (130-450) 10^3/uL MPV 9.1 (7.9-10.8) fL Neut # (Auto) 8.1 H (1.5-6.6) 10^3/uL Lymph # (Auto) 2.2 (1.5-3.5) 10^3/uL Hyde # (Auto) 1.0 (0.0-1.0) 10^3/uL Eos # (Auto) 0.6 (0.0-0.7) 10^3/uL Baso # (Auto) 0.1 (0.0-0.1) 10^3/uL Absolute Nucleated RBC 0.00 x10^3/uL Nucleated RBC % 0.0 /100WBC Manual Slide Review RBC Morph Micro Appear (NORMAL) Bld Gas Analysis Time 1015 Sample Site RIGHT BRACHIAL ABG pH 7.49 H (7.35-7.45) ABG pCO2 31 L (34-45) mmHg ABG pO2 51 L (80-100) mmHg ABG HCO3 23.0 (22.0-26.0) mmol/L ABG Total CO2 23.9 (21.0-29.0) MMOL/L ABG O2 Saturation 89 L (94-98) % ABG Base Excess 0.6 (-2.0-3.0) mmol/L Luis Carlos Test NOT APPLICABLE O2 Delivery Device NASAL CANNULA O2 Liters/Min 3.50 LPM Sodium 129 L (135-145) mmol/L Potassium 3.7 (3.5-4.5) mmol/L Chloride 98 L (101-111) mmol/L Carbon Dioxide 28 (21-32) mmol/L Anion Gap 3.0 L (6-13) BUN 15 (6-20) mg/dL Creatinine 0.6 (0.6-1.3) mg/dL Estimated GFR (MDRD) 95 (>89) Glucose 90 (74-104) mg/dL Calcium 8.9 (8.5-10.3) mg/dL Total Bilirubin (0.2-1.0) mg/dL AST (10-42) IU/L ALT (10-60) IU/L Alkaline Phosphatase (42-121) IU/L Troponin I High Sens (2.3-14.8) ng/L B-Natriuretic Peptide (5-100) pg/mL Total Protein (6.4-8.9) g/dL Albumin (3.2-5.5) g/dL Globulin (2.1-4.2) g/dL Albumin/Globulin Ratio (1.0-2.2) Lipase (11-82) U/L Nasal Adenovirus (PCR) NOT DETECTED Nasal B. parapertussis DNA (PCR) NOT DETECTED Nasal Coronavir 229E PCR NOT DETECTED Nasal Coronavir HKU1 PCR NOT DETECTED Nasal Coronavir NL63 PCR NOT DETECTED Nasal Coronavir OC43 PCR NOT DETECTED Nasal Enterovir/Rhinovir PCR NOT DETECTED Nasal Influenza B PCR NOT DETECTED Nasal Influenza A PCR NOT DETECTED Nasal Parainfluen 1 PCR NOT DETECTED Nasal Parainfluen 2 PCR NOT DETECTED Nasal Parainfluen 3 PCR NOT DETECTED Nasal Parainfluen 4 PCR NOT DETECTED Nasal RSV (PCR) NOT DETECTED Nasal B.pertussis DNA PCR NOT DETECTED Nasal C.pneumoniae (PCR) NOT DETECTED Omkar Human Metapneumo PCR NOT DETECTED Nasal M.pneumoniae (PCR) NOT DETECTED Nasal SARS-CoV-2 (PCR) NOT DETECTED 07/20/24 Range/Units 09:58 WBC 13.6 H (4.8-10.8) x10^3/uL RBC 4.14 L (4.20-5.40) 10^6/uL Hgb 13.1 (12.0-16.0) g/dL Hct 37.8 (37.0-47.0) % MCV 91.3 (81.0-99.0) fL MCH 31.6 H (27.0-31.0) pg MCHC 34.7 (32.0-36.0) g/dL RDW 12.0 (12.0-15.0) % Plt Count 291 (130-450) 10^3/uL MPV 9.2 (7.9-10.8) fL Neut # (Auto) 10.2 H (1.5-6.6) 10^3/uL Lymph # (Auto) 1.2 L (1.5-3.5) 10^3/uL Hyde # (Auto) 0.9 (0.0-1.0) 10^3/uL Eos # (Auto) 1.1 H (0.0-0.7) 10^3/uL Baso # (Auto) 0.1 (0.0-0.1) 10^3/uL Absolute Nucleated RBC 0.00 x10^3/uL Nucleated RBC % 0.0 /100WBC Manual Slide Review Indicated RBC Morph Micro Appear 1+ ANISOCYTOSIS (NORMAL) Bld Gas Analysis Time Sample Site ABG pH (7.35-7.45) ABG pCO2 (34-45) mmHg ABG pO2 (80-100) mmHg ABG HCO3 (22.0-26.0) mmol/L ABG Total CO2 (21.0-29.0) MMOL/L ABG O2 Saturation (94-98) % ABG Base Excess (-2.0-3.0) mmol/L Luis Carlos Test O2 Delivery Device O2 Liters/Min LPM Sodium 128 L (135-145) mmol/L Potassium 4.0 (3.5-4.5) mmol/L Chloride 94 L (101-111) mmol/L Carbon Dioxide 26 (21-32) mmol/L Anion Gap 8.0 (6-13) BUN 12 (6-20) mg/dL Creatinine 0.6 (0.6-1.3) mg/dL Estimated GFR (MDRD) 95 (>89) Glucose 123 H (74-104) mg/dL Calcium 9.2 (8.5-10.3) mg/dL Total Bilirubin 0.5 (0.2-1.0) mg/dL AST 14 (10-42) IU/L ALT 14 (10-60) IU/L Alkaline Phosphatase 83 (42-121) IU/L Troponin I High Sens 10.7 (2.3-14.8) ng/L B-Natriuretic Peptide 30 (5-100) pg/mL Total Protein 6.7 (6.4-8.9) g/dL Albumin 4.1 (3.2-5.5) g/dL Globulin 2.6 (2.1-4.2) g/dL Albumin/Globulin Ratio 1.6 (1.0-2.2) Lipase 12 (11-82) U/L Nasal Adenovirus (PCR) Nasal B. parapertussis DNA (PCR) Nasal Coronavir 229E PCR Nasal Coronavir HKU1 PCR Nasal Coronavir NL63 PCR Nasal Coronavir OC43 PCR Nasal Enterovir/Rhinovir PCR Nasal Influenza B PCR Nasal Influenza A PCR Nasal Parainfluen 1 PCR Nasal Parainfluen 2 PCR Nasal Parainfluen 3 PCR Nasal Parainfluen 4 PCR Nasal RSV (PCR) Nasal B.pertussis DNA PCR Nasal C.pneumoniae (PCR) Omkar Human Metapneumo PCR Nasal M.pneumoniae (PCR) Nasal SARS-CoV-2 (PCR) Assessment/Plan Problem List (1) Acute hypoxic respiratory failure: Impression: She has had multiple outpatient encounters for cough and shortness of breath. Looking back through her vital signs, it appears that she has always maintained her oxygen saturation on room air at her outpatient visits. This is not the case at the time of admit. Her oxygen saturation is improving since admit. She was on 13L oxymizer in the ED, she has been decreased through the day, and is down onto 5L via oxymizer after lunch today, and 4L around dinner time. I do not have any information on what her oxygen saturation was at the time that EMS picked her up. 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 Given her current leukocytosis of 13.6 and her hypoxia she is being treated for a community-acquired pneumonia. Given that we are experiencing a national shortage of IV fluids and fluid bags I will treat her with p.o. antibiotics of Augmentin 875 twice daily and azithromycin 500 mg daily, 5 and 3 days respectively. Her leukocytosis is improving to 12.0 today Qualifiers: Laterality: bilateral Lung location: unspecified part of lung P neumonia type: due to unspecified organism Qualified Code(s): J18.9 - Pneumonia, unspecified organism (3) COPD exacerbation: Impression: differential diagnosis would be CHF exacerbation. Her BNP 4 days ago was 60. BN P and troponin were negative at 30 and 10.7. She denies any cardiac history. She does not have a history of heart attack. she did have rheumatic fever as a child but denies any history of valvular abnormalities. On her lung exam she has diffuse wheezing. Looking back at her EKGs, her EKG done on 07/16/2024 shows incomplete left bundle branch block with new onset of LVH as compared to 12/01/2018. I think this is likely primarily a pulmonary process. (4) Trigeminal neuralgia: Impression: This is a chronic problem. She takes carbamazepine for this. 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 She has done well. Of course metastatic breast cancer is in the differential diagnosis for her lungs, however CT a shows no lesion (6) Hyponatremia: Impression: Sodium of 128 probably related to her acute illness. I do not see any history of hyponatremia. Sodium is 129 this morning. I have spent 45 minutes in the care of this patient today. This includes time [id number], review and ordering of diagnostic imaging and laboratory studies.. Monitoring the patient's signs symptoms, evaluation of medication effectiveness and patient's response to treatment.
[2024-07-21] MEDS: BACITRACIN ZINC OINT 1 PACKET TOP SCH (11:04)
[2024-07-21] MEDS: MULTIVITAMIN W/MINERALS TABLET PO SCH (17:07)
[2024-07-22] MEDS: ALBUTEROL NEB 2.5 MG/3 ML INH PRN (03:36)
[2024-07-22 06:07] LABS: CALCIUM 8.8 mg/dL (8.5-10.3); CREATININE 0.6 mg/dL (0.6-1.3); POTASSIUM 3.7 mmol/L (3.5-4.5)
[2024-07-22 06:17] LABS: BASOPHILS % (AUTO) 0.7 %; EOSINOPHILS % (AUTO) 8.8 %; HCT - HEMATOCRIT 37.7 % (37.0-47.0); HGB - HEMOGLOBIN 12.6 g/dL (12.0-16.0); LYMPHOCYTES % (AUTO) 21.2 %; MEAN CORPUSCULAR HEMOGLOBIN 31.3 pg (27.0-31.0); MEAN CORPUSCULAR HGB CONC 33.4 g/dL (32.0-36.0); MEAN CORPUSCULAR VOLUME 93.8 fL (81.0-99.0); MEAN PLATELET VOLUME 9.4 fL (7.9-10.8); MONOCYTES % (AUTO) 9.5 %; NEUTROPHILS % (AUTO) 59.1 %; PLT - PLATELET COUNT 319 10^3/uL (130-450); RED BLOOD COUNT 4.02 10^6/uL (4.20-5.40); RED CELL DISTRIBUTION WIDTH 12.3 % (12.0-15.0)
[2024-07-22 06:18] LABS: BASOPHILS # (AUTO) 0.1 10^3/uL (0.0-0.1); EOSINOPHILS # (AUTO) 0.1 10^3/uL (0.0-0.7); LYMPHOCYTES # (AUTO) 2.5 10^3/uL (1.5-3.5); MONOCYTES # (AUTO) 1.1 10^3/uL (0.0-1.0); NEUTROPHILS # (AUTO) 7.1 10^3/uL (1.5-6.6)
[2024-07-22 06:25] LABS: PLATELET MORPHOLOGY NORMAL APPEARANCE (NORMAL); RBC MORPHOLOGY (MULTIPLE) NORMAL APPEARANCE (NORMAL)
[2024-07-22 06:26] LABS: DIFFERENTIAL COMMENT MANUAL=AUTO DIFF; PLATELET ESTIMATE, MANUAL NORMAL (130-450,000) (NORMAL); WBC MORPHOLOGY (MULTIPLE) NORMAL APPEARANCE (NORMAL)
[2024-07-22] MEDS ORDERED: hydrOXYzine PAMOATE 25 MG CAPSULE PO PRN (08:26)
[2024-07-22] MEDS: DEXAMETHASONE 4 MG/ML VIAL IVP ONE (08:41)
[2024-07-22] MEDS: MORPHINE 2 MG/ML CARPUJECT IVP PRN (08:44)
--- NOTE | 2024-07-22 10:44 | PROVIDER PROGRESS NOTE ---
Subjective Prog Note Date Prog Note Date: 07/22/24 Subjective Pt reports feeling: No change Subjective: Patient is convinced she is dying and spite of continued clinical improvement. I asked her why she thought she was dying, and she states that she is [employer] and therefore does when she is dying Current Medications Current Medications Current Medications: Current Medications Generic Name Dose Route Start Last Admin Trade Name Freq PRN Reason Stop Dose Admin Acetaminophen 650 mg 07/20/24 12:38 07/21/24 08:26 Acetaminophen 325 Mg Tablet PO 650 mg Q4HR PRN Administration Pain 1 to 4, or Fever Albuterol 2.5 mg 07/20/24 12:38 07/22/24 03:36 Albuterol Neb 2.5 Mg/3 Ml INH 2.5 mg Q4H PRN Administration shortness of breath or wheezing Albuterol/Ipratropium 3 ml 07/20/24 15:00 07/22/24 07:55 Ipratropium/Albuterol 3 Ml Neb INH 3 ml RTQID STAS Administration Amoxicillin/Clavulanate Potassium 1 tab 07/20/24 12:03 07/21/24 22:15 Amox/Clav 875 Mg/125 Mg Tablet PO 07/24/24 21:01 1 tab BID STAS Administration Bacitracin 1 packet 07/21/24 10:00 07/22/24 08:43 Bacitracin Zinc Oint 1 Packet TOP 1 packet BID STAS Administration Benzonatate 100 mg 07/20/24 12:38 07/21/24 16:09 Benzonatate 100 Mg Capsule PO 100 mg TID PRN Administration Cough Dexamethasone 6 mg 07/21/24 09:00 07/21/24 08:26 Dexamethasone 4 Mg Tablet PO 07/24/24 09:01 6 mg DAILY STAS Administration Guaifenesin 1,200 mg 07/20/24 21:00 07/21/24 22:16 Guaifenesin 600 Mg Tablet PO 1,200 mg BID STAS Administration Heparin Sodium (Porcine) 5,000 unit 07/20/24 21:00 07/21/24 22:16 Heparin 5,000 Unit/Ml Vial SUBQ 5,000 unit BID STAS Administration Hydroxyzine Pamoate 25 mg 07/22/24 08:26 Hydroxyzine Pamoate 25 Mg Capsule PO QPM PRN Insomnia Ibuprofen 400 mg 07/20/24 12:38 07/21/24 08:26 Ibuprofen 400 Mg Tablet PO 400 mg Q4HR PRN Administration Pain 1 to 4 Morphine Sulfate 2 mg 07/22/24 08:23 07/22/24 08:44 Morphine 2 Mg/Ml Carpuject IVP 2 mg Q2HR PRN Administration Shortness of Air/Wheezing Multivitamins/Minerals 1 tab 07/21/24 17:00 07/21/24 17:07 Multivitamin W/Minerals Tablet PO 1 tab DAILYWM STAS Administration Ondansetron HCl 4 mg 07/20/24 12:38 Ondansetron Odt 4 Mg Tablet TL Q6HR PRN Nausea / Vomiting Oxycodone HCl 5 mg 07/20/24 12:38 Oxycodone 5 Mg Tablet PO Q4HR PRN Pain 5 to 7 Carbamazepine 300 1 each 07/21/24 09:00 07/21/24 09:00 Mg Er Multiphase 12 PO 1 each Hr Tab DAILY STAS Administration Sodium Chloride 10 ml 07/20/24 12:38 Sodium Chloride Flush 0.9% 10 Ml Syringe IVP PRN PRN NEEDED PER PROVIDER ORDERS Sodium Chloride 10 ml 07/20/24 17:00 07/22/24 08:44 Sodium Chloride Flush 0.9% 10 Ml Syringe IVP 10 ml 0100,0900,1700 STAS Administration Objective Vital Signs/Intake & Output Reviewed Vital Signs: Yes Vital Signs: Vital Signs x48h Temp Pulse Pulse Resp BP Pulse Ox O2 Flow Rate 07/22/24 08:00 37.2 C 116 H 22 157/70 H 91 L 4 07/22/24 07:58 4 07/22/24 07:58 115 H 24 07/22/24 04:06 4 07/22/24 03:39 3 07/22/24 03:39 89 20 3 Intake & Output: Intake & Output 07/20/24 07/21/24 07/22/24 07/23/24 05:59 05:59 05:59 05:59 Intake Total 892 / 892 912 / 912 300 / 300 Balance 892 / 892 912 / 912 300 / 300 Weight (kg) 54.1 kg Objective General Appearance: positive No acute distress and Alert Eyes Bilateral: positive Normal inspection and PERRL ENT: positive ENT inspection nml and No signs of dehydration Neck: positive Nml inspection Respiratory: positive Chest non-tender, No respiratory distress, Wheezes (throughout, but less at bases (less air movement at bases)) and Rhonchi Cardiovascular: positive Tachycardia Abdomen: positive Non-tender and No distention Back: positive Nml inspection Skin: positive Color nml Extremities: positive Non-tender and No pedal edema Lab Results 07/22/24 05:13 07/22/24 05:13 Other Labs: Lab Results x24hrs 07/22/24 Range/Units 05:13 WBC 12.0 H (4.8-10.8) x10^3/uL RBC 4.02 L (4.20-5.40) 10^6/uL Hgb 12.6 (12.0-16.0) g/dL Hct 37.7 (37.0-47.0) % MCV 93.8 (81.0-99.0) fL MCH 31.3 H (27.0-31.0) pg MCHC 33.4 (32.0-36.0) g/dL RDW 12.3 (12.0-15.0) % Plt Count 319 (130-450) 10^3/uL MPV 9.4 (7.9-10.8) fL Neut # (Auto) 7.1 H (1.5-6.6) 10^3/uL Lymph # (Auto) 2.5 (1.5-3.5) 10^3/uL Dupage # (Auto) 1.1 H (0.0-1.0) 10^3/uL Eos # (Auto) 0.1 (0.0-0.7) 10^3/uL Baso # (Auto) 0.1 (0.0-0.1) 10^3/uL Absolute Nucleated RBC 0.00 x10^3/uL Band Neuts % (Manual) Not Reportable Abnorm Lymph % (Manual) Not Reportable Nucleated RBC % 0.0 /100WBC Neutrophils # (Manual) Not Reportable Lymphocytes # (Manual) Not Reportable Monocytes # (Manual) Not Reportable Eosinophils # (Manual) Not Reportable Basophils # (Manual) Not Reportable Differential Comment MANUAL=AUTO DIFF WBC Morphology NORMAL APPEARANCE (NORMAL) Platelet Estimate NORMAL (130-450,000) (NORMAL) Platelet Morphology NORMAL APPEARANCE (NORMAL) RBC Morph Micro Appear NORMAL APPEARANCE (NORMAL) Sodium 131 L (135-145) mmol/L Potassium 3.7 (3.5-4.5) mmol/L Chloride 98 L (101-111) mmol/L Carbon Dioxide 27 (21-32) mmol/L Anion Gap 6.0 (6-13) BUN 16 (6-20) mg/dL Creatinine 0.6 (0.6-1.3) mg/dL Estimated GFR (MDRD) 95 (>89) Glucose 88 (74-104) mg/dL Calcium 8.8 (8.5-10.3) mg/dL Assessment/Plan Problem List (1) Acute hypoxic respiratory failure: Impression: Patient was initially on 13 L Oxymizer in the ER, and has weaned down to 4 L at time of my interview. She has been started on p.o. Decadron, and has been transition to p.o. antibiotics. She has finished 2 days total coverage and is now on Augmentin and azithromycin. I ordered an additional IV dose of Decadron as well as morphine to help with air hunger. She does not seem severely distressed at time of my interview Today, she reports an impending sense of doom. She states she is [employer], and therefore knows when she is going to . We have reached out to shipwright helper services at her request, however I do not think that last rites are indicated at this time. 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 Undergoing treatment for community-acquired pneumonia with Augmentin and azithromycin for total of 5 and 3 days respectively WBC is maintaining at 12 Qualifiers: Laterality: bilateral Lung location: unspecified part of lung P neumonia type: due to unspecified organism Qualified Code(s): J18.9 - Pneumonia, unspecified organism (3) COPD exacerbation: Impression: COPD exacerbation is in her differential diagnosis list. She is on p.o. Decadron (4) Trigeminal neuralgia: Impression: This is a chronic problem. She takes carbamazepine for this. Continuing home carbamazepine (5) History of breast cancer: Impression: History of stage I DCIS in 2010 treated surgically without follow-up radiation or chemo or antihormone drugs. She has done well. Of course metastatic breast cancer is in the differential diagnosis for her lungs, however CT a shows no lesion (6) Hyponatremia: Impression: Hyponatremia likely related to acute illness. Has improved to 131 today. BMP daily while inpatient
--- NOTE | 2024-07-22 16:57 | MISCELLANEOUS PROVIDER NOTE ---
Miscellaneous Provider Note - Note: Additional 20 minutes was spent in advance care planning, including assistance with filling out POLST form and discussion with clergy
[2024-07-22] MEDS: SODIUM CHLORIDE FLUSH 0.9% 10 ML SYRINGE IVP PRN (21:14)
[2024-07-23 06:07] LABS: BASOPHILS # (AUTO) 0.1 10^3/uL (0.0-0.1); BASOPHILS % (AUTO) 0.6 %; EOSINOPHILS # (AUTO) 0.8 10^3/uL (0.0-0.7); EOSINOPHILS % (AUTO) 5.8 %; HCT - HEMATOCRIT 38.7 % (37.0-47.0); HGB - HEMOGLOBIN 12.7 g/dL (12.0-16.0); LYMPHOCYTES # (AUTO) 2.4 10^3/uL (1.5-3.5); LYMPHOCYTES % (AUTO) 17.8 %; MEAN CORPUSCULAR HEMOGLOBIN 30.8 pg (27.0-31.0); MEAN CORPUSCULAR HGB CONC 32.8 g/dL (32.0-36.0); MEAN CORPUSCULAR VOLUME 93.9 fL (81.0-99.0); MONOCYTES # (AUTO) 1.3 10^3/uL (0.0-1.0); MONOCYTES % (AUTO) 9.2 %; NEUTROPHILS # (AUTO) 8.9 10^3/uL (1.5-6.6); NEUTROPHILS % (AUTO) 65.7 %; PLT - PLATELET COUNT 376 10^3/uL (130-450); RED BLOOD COUNT 4.12 10^6/uL (4.20-5.40); RED CELL DISTRIBUTION WIDTH 11.9 % (12.0-15.0); WHITE BLOOD COUNT 13.5 x10^3/uL (4.8-10.8)
[2024-07-23 06:16] LABS: CREATININE 0.5 mg/dL (0.6-1.3); POTASSIUM 4.1 mmol/L (3.5-4.5)
--- NOTE | 2024-07-23 08:39 | PROVIDER PROGRESS NOTE ---
Subjective Prog Note Date Prog Note Date: 07/23/24 Subjective Pt reports feeling: Improved Subjective: This morning, she does not endorse certainty of . She does, however, states that she cannot breathe while lying comfortably in her bed Current Medications Current Medications Current Medications: Current Medications Generic Name Dose Route Start Last Admin Trade Name Freq PRN Reason Stop Dose Admin Acetaminophen 650 mg 07/20/24 12:38 07/21/24 08:26 Acetaminophen 325 Mg Tablet PO 650 mg Q4HR PRN Administration Pain 1 to 4, or Fever Albuterol 2.5 mg 07/20/24 12:38 07/23/24 04:51 Albuterol Neb 2.5 Mg/3 Ml INH 2.5 mg Q4H PRN Administration shortness of breath or wheezing Albuterol/Ipratropium 3 ml 07/20/24 15:00 07/23/24 08:07 Ipratropium/Albuterol 3 Ml Neb INH 3 ml RTQID STAS Administration Amoxicillin/Clavulanate Potassium 1 tab 07/20/24 12:03 07/22/24 20:25 Amox/Clav 875 Mg/125 Mg Tablet PO 07/24/24 21:01 1 tab BID STAS Administration Bacitracin 1 packet 07/21/24 10:00 07/22/24 20:26 Bacitracin Zinc Oint 1 Packet TOP 1 packet BID STAS Administration Benzonatate 100 mg 07/20/24 12:38 07/23/24 05:13 Benzonatate 100 Mg Capsule PO 100 mg TID PRN Administration Cough Dexamethasone 6 mg 07/21/24 09:00 07/22/24 09:20 Dexamethasone 4 Mg Tablet PO 07/24/24 09:01 6 mg DAILY STAS Administration Guaifenesin 1,200 mg 07/20/24 21:00 07/22/24 20:25 Guaifenesin 600 Mg Tablet PO 1,200 mg BID STAS Administration Guaifenesin 10 ml 07/23/24 08:36 Guaifenesin/Dextromethorphan 10 Ml Udc PO Q6HR PRN Cough Heparin Sodium (Porcine) 5,000 unit 07/20/24 21:00 07/22/24 20:34 Heparin 5,000 Unit/Ml Vial SUBQ Not Given BID STAS Hydroxyzine Pamoate 25 mg 07/22/24 08:26 Hydroxyzine Pamoate 25 Mg Capsule PO QPM PRN Insomnia Ibuprofen 400 mg 07/20/24 12:38 07/21/24 08:26 Ibuprofen 400 Mg Tablet PO 400 mg Q4HR PRN Administration Pain 1 to 4 Morphine Sulfate 2 mg 07/22/24 08:23 07/23/24 08:30 Morphine 2 Mg/Ml Carpuject IVP 2 mg Q2HR PRN Administration Shortness of Air/Wheezing Multivitamins/Minerals 1 tab 07/21/24 17:00 07/22/24 10:41 Multivitamin W/Minerals Tablet PO Not Given DAILYWM STAS Ondansetron HCl 4 mg 07/20/24 12:38 Ondansetron Odt 4 Mg Tablet TL Q6HR PRN Nausea / Vomiting Oxycodone HCl 5 mg 07/20/24 12:38 Oxycodone 5 Mg Tablet PO Q4HR PRN Pain 5 to 7 Carbamazepine 300 1 each 07/21/24 09:00 07/22/24 20:25 Mg Er Multiphase 12 PO 1 each Hr Tab DAILY STAS Administration Sodium Chloride 10 ml 07/20/24 12:38 07/22/24 21:14 Sodium Chloride Flush 0.9% 10 Ml Syringe IVP 10 ml PRN PRN Administration NEEDED PER PROVIDER ORDERS Sodium Chloride 10 ml 07/20/24 17:00 07/23/24 08:31 Sodium Chloride Flush 0.9% 10 Ml Syringe IVP 10 ml 0100,0900,1700 STAS Administration Objective Vital Signs/Intake & Output Reviewed Vital Signs: Yes Vital Signs: Vital Signs x48h Pulse Resp O2 Flow Rate 07/23/24 08:08 10 07/23/24 08:08 106 H 24 07/23/24 06:15 10 07/23/24 06:15 12 07/23/24 05:26 12 07/23/24 04:50 108 H 24 12 Intake & Output: Intake & Output 07/21/24 07/22/24 07/23/24 07/24/24 05:59 05:59 05:59 05:59 Intake Total 892 / 892 912 / 912 1190 / 1190 Balance 892 / 892 912 / 912 1190 / 1190 Weight (kg) 54.1 kg Objective General Appearance: positive No acute distress and Alert Eyes Bilateral: positive Normal inspection and PERRL ENT: positive ENT inspection nml and No signs of dehydration Neck: positive Nml inspection Respiratory: positive Chest non-tender, No respiratory distress, Wheezes (throughout, but less at bases (less air movement at bases)) and Rhonchi Cardiovascular: positive Tachycardia Abdomen: positive Non-tender and No distention Back: positive Nml inspection Skin: positive Color nml Extremities: positive Non-tender and No pedal edema Lab Results 07/23/24 05:53 07/23/24 05:53 Other Labs: Lab Results x24hrs 07/23/24 Range/Units 05:53 WBC 13.5 H (4.8-10.8) x10^3/uL RBC 4.12 L (4.20-5.40) 10^6/uL Hgb 12.7 (12.0-16.0) g/dL Hct 38.7 (37.0-47.0) % MCV 93.9 (81.0-99.0) fL MCH 30.8 (27.0-31.0) pg MCHC 32.8 (32.0-36.0) g/dL RDW 11.9 L (12.0-15.0) % Plt Count 376 (130-450) 10^3/uL MPV 9.0 (7.9-10.8) fL Neut # (Auto) 8.9 H (1.5-6.6) 10^3/uL Lymph # (Auto) 2.4 (1.5-3.5) 10^3/uL [place] # (Auto) 1.3 H (0.0-1.0) 10^3/uL Eos # (Auto) 0.8 H (0.0-0.7) 10^3/uL Baso # (Auto) 0.1 (0.0-0.1) 10^3/uL Absolute Nucleated RBC 0.00 x10^3/uL Nucleated RBC % 0.0 /100WBC Sodium 130 L (135-145) mmol/L Potassium 4.1 (3.5-4.5) mmol/L Chloride 96 L (101-111) mmol/L Carbon Dioxide 27 (21-32) mmol/L Anion Gap 7.0 (6-13) BUN 16 (6-20) mg/dL Creatinine 0.5 L (0.6-1.3) mg/dL Estimated GFR (MDRD) 117 (>89) Glucose 102 (74-104) mg/dL Calcium 9.0 (8.5-10.3) mg/dL Assessment/Plan Problem List (1) Acute hypoxic respiratory failure: Impression: 13 L Oxymizer in the ER, weaned down to 4 L. She had episode of dyspnea last night so she was increased to 10 L. I will ask nursing staff to reevaluate for oxygen weaning. She is on Decadron p.o., which is driving her leukocytosis. She is on day 3 of antibiotic coverage, and will have 2 more days of Augmentin. She no longer endorses that she is dying. She does say that she is significantly dyspneic. I have added Robitussin as I believe that her coughing spells are worsening her dyspnea. CTA thorax shows concern for pulmonary vascular congestion. I will check an echo and start her on diuretics. Check CXR Consider escalating antibiotics pending CXR results POLST form yesterday indicates that her focus should be on comfort measures. I believe that her steroids and antibiotics will improve her comfort. (2) Pneumonia: Impression: CTA of the thorax done 4 days [employer] shows new or increased moderate to severe diffuse upper and lower peribronchial heel thickening with multiple areas of bronchial feeling, mucus filling and associated diffuse upper and lower groundglass opacities. Undergoing treatment for community-acquired pneumonia with Augmentin and azithromycin for total of 5 and 3 days respectively WBC is maintaining at 12, Will probably stay at this level while she is completing a course of Decadron Qualifiers: Laterality: bilateral Lung location: unspecified part of lung P neumonia type: due to unspecified organism Qualified Code(s): J18.9 - Pneumonia, unspecified organism (3) COPD exacerbation: Impression: COPD exacerbation is in her differential diagnosis list. She is on p.o. Decadron (4) Trigeminal neuralgia: Impression: This is a chronic problem. She takes carbamazepine for this. 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 She has done well. Of course metastatic breast cancer is in the differential diagnosis for her lungs, however CT a shows no lesion (6) Hyponatremia: Impression: Hyponatremia likely related to acute illness. Has improved to 131 today. BMP daily while inpatient
[2024-07-23] MEDS: FUROSEMIDE 40 MG/4 ML VIAL IVP STA (09:54)
[2024-07-23] MEDS: guaiFENesin/DEXTROMETHORPHAN 10 ML UDC PO PRN (10:02)
--- NOTE | 2024-07-23 12:21 | XRAY Report ---
PROCEDURE: XR Chest 1V INDICATIONS: Worsening respiratory status TECHNIQUE: One view of the chest was acquired. COMPARISON: 07/20/2024. FINDINGS: Surgical changes and devices: None. Lungs and pleura: Prominent interstitial markings. Likely small bilateral pleural effusions. Mediastinum: Mediastinal contours appear normal. Heart size is normal. Bones and chest wall: No suspicious bony lesions. Overlying soft tissues appear unremarkable. IMPRESSION: Prominent interstitial markings and likely small bilateral pleural effusions concerning for volume ov erload. Reviewed by: Niraj Gracia MD on 07/23/2024 12:19 PM PST Approved by: Niraj Gracia MD on 07/23/2024 12:19 PM PST Station ID: [id number]
--- NOTE | 2024-07-24 08:55 | HISTORY & PHYSICAL EXAMINATION ---
Meds/Allgy Home Medications Ambulatory Orders Medication Instructions Recorded Confirmed ipratropium 0.5 mg-albuterol 3 mg 3 ml inhalation QID PRN shortness 07/16/24 07/20/24 (2.5 mg base)/3 mL nebulization of breath #90 mL soln albuterol sulfate 2.5 mg/3 mL 2.5 mg inhalation Q4H PRN 07/17/24 07/20/24 (0.083 %) solution for nebulization shortness of breath or wheezing albuterol sulfate 90 mcg/actuation 1 puff inhalation QID PRN 07/17/24 07/20/24 aerosol inhaler shortness of breath or wheezing fluticasone propionate 115 2 puff inhalation DAILY 07/17/24 07/20/24 mcg-salmeterol 21 mcg/actuation HFA inhaler (Advair HFA) carbamazepine 300 mg 300 mg PO DAILY 07/20/24 07/20/24 capsule,extended release [id number] fluticasone propionate 50 2 spray intranasal BID 07/20/24 07/20/24 mcg/actuation nasal spray,suspension Allergies Allergies Allergy/AdvReac Type Severity Reaction Status Date / Time No Known Drug Allergies Allergy Verified 07/20/24 09:53 [facility] Medical History Medical History (Updated 07/20/24 @ 12:49 by VAMSI Antonio) Trigeminal neuralgia History of melanoma History of Mohs micrographic surgery for skin cancer History of breast cancer Asthma History of rheumatic fever as a child Surgical History Surgical History (Updated 07/16/24 @ 10:24 by Kristina Peralta RN) History of hysterectomy History of mastectomy Family History Family History (Updated 07/17/24 @ 07:32 by Sg Jerome) Mother Colon cancer Brother Lung cancer Father Heart attack Social History Social History (Updated 07/20/24 @ 12:35 by VAMSI Antonio) Smoking Status: Never smoker Second hand tobacco smoke exposure: No Do you dip or chew tobacco?: No Do you vape?: No Relationship: Child Level: Assisted Home Mobility Equipment: Wheeled walker Do you feel safe in your home environment?: Yes Suffered physical, verbal, emotional, or financial abuse?: No POLST Patient has POLST: No POLST Status: DNR Conclusion/Plan Problem List (1) Acute hypoxic respiratory failure: Plan: Patient was discussed with Dr Chandra, ED attending. She has had multiple outpatient encounters for cough and shortness of breath. Looking back through her vital signs, it appears that she has always maintained her oxygen saturation on room air. However today this is not the case. Today she is on 13 L via Oxymizer when I walk in the room. I am able to turn it down to 11 L and have a conversation with her and her sats did not drop drop below 92%. When she came into the emergency department today she was able to maintain an O2 sat of 90% on 4 L via nasal cannula. I do not have any information on what her oxygen saturation was at the time that EMS picked her up. Laboratory Tests 07/20/24 10:15 ABG pH 7.49 H ABG pCO2 31 L ABG pO2 51 L ABG HCO3 23.0 ABG O2 Saturation 89 L O2 Delivery Device NASAL CANNULA O2 Liters/Min 3.50 (2) Pneumonia: Plan: CTA of the thorax done 4 days ago shows new or increased moderate to severe diffuse upper and lower peribronchial heel thickening with multiple areas of bronchial feeling, mucus filling and associated diffuse upper and lower groundglass opacities. Given her current leukocytosis of 13.6 and her hypoxia I think it is reasonable to treat her for a community-acquired pneumonia. Given that we are experiencing a national shortage of IV fluids and fluid bags I will treat her with p.o. antibiotics of Augmentin 875 twice daily and azithromycin 500 mg daily, 5 and 3 days respectively. Qualifiers: Laterality: bilateral Lung location: unspecified part of lung P neumonia type: due to unspecified organism Qualified Code(s): J18.9 - Pneumonia, unspecified organism (3) COPD exacerbation: Plan: differential diagnosis would be CHF exacerbation. Her BNP 4 days ago was 60. I am going to add on a BNP to today's emergency department labs. She denies any cardiac history. She does not have a history of heart attack she did have rheumatic fever as a child but denies any history of valvular abnormalities. On her lung exam she has diffuse wheezing. Looking back at her EKGs, her EKG done on 07/16/2024 shows incomplete left bundle branch block with new onset of LVH as compared to 12/01/2018. I will repeat her BNP. Additionally I will repeat a troponin. However I think this is likely primarily a pulmonary process. (4) Trigeminal neuralgia: Plan: This is a chronic problem. She takes carbamazepine for this. We will continue her home carbamazepine. 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 She has done well. Of course metastatic breast cancer is in the differential diagnosis for her lungs, however CT a shows no lesion (6) Hyponatremia: Plan: Sodium of 128 probably related to her acute illness. I do not see any history of hyponatremia. I will start her on a regular diet and recheck her sodium in the morning. Plan I have spent 80 minutes in the care of this patient today. This includes time [id number], review and ordering of diagnostic imaging and laboratory studies and consultation with other providers.. Monitoring the patient's signs symptoms, evaluation of medication effectiveness and patient's response to treatment. Lab Results Lab results reviewed: Yes 07/23/24 05:53 07/23/24 05:53
--- NOTE | 2024-07-24 09:02 | PROVIDER PROGRESS NOTE ---
Subjective Prog Note Date Prog Note Date: 07/24/24 Subjective Pt reports feeling: Improved Subjective: Reports that she still has coughing spells every 2 hours. Respiratory status improved otherwise Current Medications Current Medications Current Medications: Current Medications Generic Name Dose Route Start Last Admin Trade Name Freq PRN Reason Stop Dose Admin Acetaminophen 650 mg 07/20/24 12:38 07/21/24 08:26 Acetaminophen 325 Mg Tablet PO 650 mg Q4HR PRN Administration Pain 1 to 4, or Fever Albuterol 2.5 mg 07/20/24 12:38 07/23/24 04:51 Albuterol Neb 2.5 Mg/3 Ml INH 2.5 mg Q4H PRN Administration shortness of breath or wheezing Albuterol/Ipratropium 3 ml 07/20/24 15:00 07/24/24 07:47 Ipratropium/Albuterol 3 Ml Neb INH 3 ml RTQID STAS Administration Amoxicillin/Clavulanate Potassium 1 tab 07/20/24 12:03 07/23/24 20:57 Amox/Clav 875 Mg/125 Mg Tablet PO 07/24/24 21:01 1 tab BID STAS Administration Bacitracin 1 packet 07/21/24 10:00 07/23/24 20:57 Bacitracin Zinc Oint 1 Packet TOP 1 packet BID STAS Administration Benzonatate 100 mg 07/20/24 12:38 07/24/24 01:49 Benzonatate 100 Mg Capsule PO 100 mg TID PRN Administration Cough Dexamethasone 6 mg 07/21/24 09:00 07/23/24 09:30 Dexamethasone 4 Mg Tablet PO 07/24/24 09:01 6 mg DAILY STAS Administration Furosemide 40 mg 07/24/24 09:00 Furosemide 40 Mg/4 Ml Vial IVP DAILY STAS Guaifenesin 1,200 mg 07/20/24 21:00 07/23/24 20:57 Guaifenesin 600 Mg Tablet PO 1,200 mg BID STAS Administration Guaifenesin 10 ml 07/23/24 08:36 07/23/24 10:02 Guaifenesin/Dextromethorphan 10 Ml Udc PO 10 ml Q6HR PRN Administration Cough Heparin Sodium (Porcine) 5,000 unit 07/20/24 21:00 07/23/24 20:57 Heparin 5,000 Unit/Ml Vial SUBQ 5,000 unit BID STAS Administration Hydroxyzine Pamoate 25 mg 07/22/24 08:26 Hydroxyzine Pamoate 25 Mg Capsule PO QPM PRN Insomnia Ibuprofen 400 mg 07/20/24 12:38 07/21/24 08:26 Ibuprofen 400 Mg Tablet PO 400 mg Q4HR PRN Administration Pain 1 to 4 Morphine Sulfate 2 mg 07/22/24 08:23 07/24/24 06:50 Morphine 2 Mg/Ml Carpuject IVP 2 mg Q2HR PRN Administration Shortness of Air/Wheezing Multivitamins/Minerals 1 tab 07/21/24 17:00 07/23/24 09:29 Multivitamin W/Minerals Tablet PO 1 tab DAILYWM STAS Administration Ondansetron HCl 4 mg 07/20/24 12:38 Ondansetron Odt 4 Mg Tablet TL Q6HR PRN Nausea / Vomiting Oxycodone HCl 5 mg 07/20/24 12:38 Oxycodone 5 Mg Tablet PO Q4HR PRN Pain 5 to 7 Carbamazepine 300 1 each 07/21/24 09:00 07/23/24 09:31 Mg Er Multiphase 12 PO 1 each Hr Tab DAILY STAS Administration Sodium Chloride 10 ml 07/20/24 12:38 07/24/24 06:50 Sodium Chloride Flush 0.9% 10 Ml Syringe IVP 10 ml PRN PRN Administration NEEDED PER PROVIDER ORDERS Sodium Chloride 10 ml 07/20/24 17:00 07/24/24 01:49 Sodium Chloride Flush 0.9% 10 Ml Syringe IVP 10 ml 0100,0900,1700 STAS Administration Objective Vital Signs/Intake & Output Reviewed Vital Signs: Yes Vital Signs: Vital Signs x48h Temp Pulse Pulse Resp BP Pulse Ox O2 Flow Rate 07/24/24 07:58 36.5 C 95 H 18 121/54 L 92 3 07/24/24 07:48 3 07/24/24 07:48 91 H 18 3 Intake & Output: Intake & Output 07/22/24 07/23/24 07/24/24 07/25/24 05:59 05:59 05:59 05:59 Intake Total 912 / 912 1190 / 1190 270 / 270 400 / 400 Output Total 525 / 525 150 / 150 Balance 912 / 912 1190 / 1190 -255 / -255 250 / 250 Objective General Appearance: positive No acute distress and Alert Eyes Bilateral: positive Normal inspection ENT: positive ENT inspection nml and No signs of dehydration Neck: positive Nml inspection Respiratory: positive Chest non-tender, No respiratory distress, Wheezes and Rhonchi Cardiovascular: positive Tachycardia Abdomen: positive Non-tender and No distention Back: positive Nml inspection Skin: positive Color nml Extremities: positive Non-tender and No pedal edema Neurologic/Psychiatric: positive Oriented x3 Lab Results 07/23/24 05:53 07/23/24 05:53 Other Labs: Lab Results x24hrs 07/23/24 Range/Units 05:53 WBC 13.5 H (4.8-10.8) x10^3/uL RBC 4.12 L (4.20-5.40) 10^6/uL Hgb 12.7 (12.0-16.0) g/dL Hct 38.7 (37.0-47.0) % MCV 93.9 (81.0-99.0) fL MCH 30.8 (27.0-31.0) pg MCHC 32.8 (32.0-36.0) g/dL RDW 11.9 L (12.0-15.0) % Plt Count 376 (130-450) 10^3/uL MPV 9.0 (7.9-10.8) fL Neut # (Auto) 8.9 H (1.5-6.6) 10^3/uL Lymph # (Auto) 2.4 (1.5-3.5) 10^3/uL [place] # (Auto) 1.3 H (0.0-1.0) 10^3/uL Eos # (Auto) 0.8 H (0.0-0.7) 10^3/uL Baso # (Auto) 0.1 (0.0-0.1) 10^3/uL Absolute Nucleated RBC 0.00 x10^3/uL Nucleated RBC % 0.0 /100WBC Sodium 130 L (135-145) mmol/L Potassium 4.1 (3.5-4.5) mmol/L Chloride 96 L (101-111) mmol/L Carbon Dioxide 27 (21-32) mmol/L Anion Gap 7.0 (6-13) BUN 16 (6-20) mg/dL Creatinine 0.5 L (0.6-1.3) mg/dL Estimated GFR (MDRD) 117 (>89) Glucose 102 (74-104) mg/dL Calcium 9.0 (8.5-10.3) mg/dL Assessment/Plan Problem List (1) Acute hypoxic respiratory failure: Impression: 13 L Oxymizer in the ER, weaned down to 4 L. She had episode of dyspnea last night so she was increased to 10 L. I will ask nursing staff to reevaluate for oxygen weaning. She is on Decadron p.o., which is driving her leukocytosis. She is on day 4 of antibiotic coverage, and will have 1 more days of Augmentin. She no longer endorses that she is dying. She does say that she is significantly dyspneic. CTA thorax shows concern for pulmonary vascular congestion. I will check an echo and start her on diuretics. Check CXR Consider escalating antibiotics pending CXR results 07/24/2024: Echo performed yesterday shows EF approximately 55%. Her oxygenation improved after dose of IV Lasix. Will continue IV Lasix daily. Patient continues to require inpatient care past the 96-hour romie at this critical access hospital, For management of COPD, pneumonia, possible heart failure Currently on 3 L O2 (2) Pneumonia: Impression: CTA of the thorax done 4 days [employer] shows new or increased moderate to severe diffuse upper and lower peribronchial heel thickening with multiple areas of bronchial feeling, mucus filling and associated diffuse upper and lower groundglass opacities. Undergoing treatment for community-acquired pneumonia with Augmentin and azithromycin for total of 5 and 3 days respectively WBC 13.5, on steroids. Continue current regimen Qualifiers: Laterality: bilateral Lung location: unspecified part of lung P neumonia type: due to unspecified organism Qualified Code(s): J18.9 - Pneumonia, unspecified organism (3) COPD exacerbation: Impression: COPD exacerbation is in her differential diagnosis list. She is on p.o. Decadron (4) Trigeminal neuralgia: Impression: This is a chronic problem. She takes carbamazepine for this. 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 She has done well. Of course metastatic breast cancer is in the differential diagnosis for her lungs, however CT a shows no lesion (6) Hyponatremia: Impression: Hyponatremia likely related to acute illness. 130 today. BMP daily while inpatient
[2024-07-24] MEDS: FUROSEMIDE 40 MG/4 ML VIAL IVP SCH (14:21)
[2024-07-25 05:27] LABS: BASOPHILS % (AUTO) 0.9 %; EOSINOPHILS % (AUTO) 17.9 %; HCT - HEMATOCRIT 34.9 % (37.0-47.0); LYMPHOCYTES % (AUTO) 21.2 %; MEAN CORPUSCULAR HEMOGLOBIN 31.3 pg (27.0-31.0); MEAN CORPUSCULAR HGB CONC 34.4 g/dL (32.0-36.0); MEAN CORPUSCULAR VOLUME 91.1 fL (81.0-99.0); MEAN PLATELET VOLUME 8.6 fL (7.9-10.8); MONOCYTES % (AUTO) 8.6 %; NEUTROPHILS % (AUTO) 50.9 %; PLT - PLATELET COUNT 349 10^3/uL (130-450); RED BLOOD COUNT 3.83 10^6/uL (4.20-5.40); RED CELL DISTRIBUTION WIDTH 11.9 % (12.0-15.0); WHITE BLOOD COUNT 10.9 x10^3/uL (4.8-10.8)
[2024-07-25 05:35] LABS: ABNORMAL LYMPHS % (MANUAL) 0 %; BAND NEUTROPHILS % (MANUAL) 0 %
[2024-07-25 05:43] LABS: CREATININE 0.6 mg/dL (0.6-1.3); POTASSIUM 3.6 mmol/L (3.5-4.5)
[2024-07-25 06:08] LABS: BASOPHILS # (MANUAL) 0.1 10^3/uL (0-0.1); BASOPHILS % (MANUAL) 1 %; EOSINOPHILS # (MANUAL) 1.4 10^3/uL (0-0.7); LYMPHOCYTES # (MANUAL) 2.1 10^3/uL (1.5-3.5); LYMPHOCYTES % (MANUAL) 19 %; NEUTROPHILS # (MANUAL) 6.3 10^3/uL (1.5-6.6)
[2024-07-25 06:09] LABS: DIFFERENTIAL COMMENT MANUAL DIFFERENTIAL; PLATELET ESTIMATE, MANUAL NORMAL (130-450,000) (NORMAL); PLATELET MORPHOLOGY NORMAL APPEARANCE (NORMAL); RBC MORPHOLOGY (MULTIPLE) NORMAL APPEARANCE (NORMAL); WBC MORPHOLOGY (MULTIPLE) NORMAL APPEARANCE (NORMAL)
[2024-07-25] MEDS: SODIUM CHLORIDE 1 GM TABLET PO SCH (08:10)
--- NOTE | 2024-07-25 08:26 | PROVIDER PROGRESS NOTE ---
Subjective Prog Note Date Prog Note Date: 07/25/24 Subjective Pt reports feeling: Improved Subjective: States she has some difficulty with coughing at night. Dyspnea much better managed today Current Medications Current Medications Current Medications: Current Medications Generic Name Dose Route Start Last Admin Trade Name Freq PRN Reason Stop Dose Admin Acetaminophen 650 mg 07/20/24 12:38 07/21/24 08:26 Acetaminophen 325 Mg Tablet PO 650 mg Q4HR PRN Administration Pain 1 to 4, or Fever Albuterol 2.5 mg 07/20/24 12:38 07/23/24 04:51 Albuterol Neb 2.5 Mg/3 Ml INH 2.5 mg Q4H PRN Administration shortness of breath or wheezing Albuterol/Ipratropium 3 ml 07/20/24 15:00 07/25/24 07:09 Ipratropium/Albuterol 3 Ml Neb INH 3 ml RTQID STAS Administration Bacitracin 1 packet 07/21/24 10:00 07/25/24 08:10 Bacitracin Zinc Oint 1 Packet TOP 1 packet BID STAS Administration Benzonatate 100 mg 07/20/24 12:38 07/25/24 08:11 Benzonatate 100 Mg Capsule PO 100 mg TID PRN Administration Cough Furosemide 40 mg 07/24/24 09:00 07/25/24 08:10 Furosemide 40 Mg/4 Ml Vial IVP 40 mg DAILY STAS Administration Guaifenesin 1,200 mg 07/20/24 21:00 07/25/24 08:10 Guaifenesin 600 Mg Tablet PO 1,200 mg BID STAS Administration Guaifenesin 10 ml 07/23/24 08:36 07/23/24 10:02 Guaifenesin/Dextromethorphan 10 Ml Udc PO 10 ml Q6HR PRN Administration Cough Heparin Sodium (Porcine) 5,000 unit 07/20/24 21:00 07/25/24 08:10 Heparin 5,000 Unit/Ml Vial SUBQ 5,000 unit BID STAS Administration Hydroxyzine Pamoate 25 mg 07/22/24 08:26 Hydroxyzine Pamoate 25 Mg Capsule PO QPM PRN Insomnia Ibuprofen 400 mg 07/20/24 12:38 07/21/24 08:26 Ibuprofen 400 Mg Tablet PO 400 mg Q4HR PRN Administration Pain 1 to 4 Morphine Sulfate 2 mg 07/22/24 08:23 07/25/24 08:10 Morphine 2 Mg/Ml Carpuject IVP 2 mg Q2HR PRN Administration Shortness of Air/Wheezing Multivitamins/Minerals 1 tab 07/21/24 17:00 07/25/24 08:10 Multivitamin W/Minerals Tablet PO 1 tab DAILYWM STAS Administration Ondansetron HCl 4 mg 07/20/24 12:38 Ondansetron Odt 4 Mg Tablet TL Q6HR PRN Nausea / Vomiting Oxycodone HCl 5 mg 07/20/24 12:38 Oxycodone 5 Mg Tablet PO Q4HR PRN Pain 5 to 7 Carbamazepine 300 1 each 07/21/24 09:00 07/25/24 08:10 Mg Er Multiphase 12 PO 1 each Hr Tab DAILY STAS Administration Sodium Chloride 10 ml 07/20/24 12:38 07/24/24 19:37 Sodium Chloride Flush 0.9% 10 Ml Syringe IVP 10 ml PRN PRN Administration NEEDED PER PROVIDER ORDERS Sodium Chloride 10 ml 07/20/24 17:00 07/25/24 08:11 Sodium Chloride Flush 0.9% 10 Ml Syringe IVP 10 ml 0100,0900,1700 STAS Administration Sodium Chloride 2 gm 07/25/24 09:00 07/25/24 08:10 Sodium Chloride 1 Gm Tablet PO 2 gm BID STAS Administration Objective Vital Signs/Intake & Output Reviewed Vital Signs: Yes Vital Signs: Vital Signs x48h Temp Pulse Pulse Resp BP Pulse Ox O2 Flow Rate 07/25/24 07:45 36.4 C L 95 H 16 111/57 L 94 3 07/25/24 07:10 90 22 3 Intake & Output: Intake & Output 07/23/24 07/24/24 07/25/24 07/26/24 05:59 05:59 05:59 05:59 Intake Total 1190 / 1190 270 / 270 1270 / 1270 50 / 50 Output Total 525 / 525 1850 / 1850 150 / 150 Balance 1190 / 1190 -255 / -255 -580 / -580 -100 / -100 Objective General Appearance: positive No acute distress and Alert Eyes Bilateral: positive Normal inspection ENT: positive ENT inspection nml and No signs of dehydration Neck: positive Nml inspection Respiratory: positive Chest non-tender, No respiratory distress, Wheezes and Rhonchi Cardiovascular: positive Tachycardia Abdomen: positive Non-tender and No distention Back: positive Nml inspection Skin: positive Color nml Extremities: positive Non-tender and No pedal edema Neurologic/Psychiatric: positive Oriented x3 Lab Results 07/25/24 05:20 07/25/24 05:20 Other Labs: Lab Results x24hrs 07/25/24 Range/Units 05:20 WBC 10.9 H (4.8-10.8) x10^3/uL RBC 3.83 L (4.20-5.40) 10^6/uL Hgb 12.0 (12.0-16.0) g/dL Hct 34.9 L (37.0-47.0) % MCV 91.1 (81.0-99.0) fL MCH 31.3 H (27.0-31.0) pg MCHC 34.4 (32.0-36.0) g/dL RDW 11.9 L (12.0-15.0) % Plt Count 349 (130-450) 10^3/uL MPV 8.6 (7.9-10.8) fL Neut # (Auto) Not Reportable Lymph # (Auto) Not Reportable [place] # (Auto) Not Reportable Eos # (Auto) Not Reportable Baso # (Auto) Not Reportable Absolute Nucleated RBC Not Reportable Total Counted 100 Band Neuts % (Manual) 0 (0 - 10) % Abnorm Lymph % (Manual) 0 % Nucleated RBC % Not Reportable Neutrophils # (Manual) 6.3 (1.5-6.6) 10^3/uL Lymphocytes # (Manual) 2.1 (1.5-3.5) 10^3/uL Monocytes # (Manual) 1.0 (0.0-1.0) 10^3/uL Eosinophils # (Manual) 1.4 H (0-0.7) 10^3/uL Basophils # (Manual) 0.1 (0-0.1) 10^3/uL Differential Comment MANUAL DIFFERENTIAL WBC Morphology NORMAL APPEARANCE (NORMAL) Platelet Estimate NORMAL (130-450,000) (NORMAL) Platelet Morphology NORMAL APPEARANCE (NORMAL) RBC Morph Micro Appear NORMAL APPEARANCE (NORMAL) Sodium 125 L (135-145) mmol/L Potassium 3.6 (3.5-4.5) mmol/L Chloride 93 L (101-111) mmol/L Carbon Dioxide 31 (21-32) mmol/L Anion Gap 1.0 L (6-13) BUN 17 (6-20) mg/dL Creatinine 0.6 (0.6-1.3) mg/dL Estimated GFR (MDRD) 95 (>89) Glucose 94 (74-104) mg/dL Calcium 9.0 (8.5-10.3) mg/dL Assessment/Plan Problem List (1) Acute hypoxic respiratory failure: Impression: 13 L Oxymizer in the ER, Oxygen needs have waxed and waned over the past few days. She has completed a full course of Augmentin/azithromycin as well as Decadron CTA chest 07/16/2024 with moderate to severe diffuse peribronchial thickening, groundglass opacities, pulmonary vascular congestion, pulmonary artery hypertension, mildly enlarged lymph nodes Chest x-ray 07/23/2024 Prominent interstitial markings and likely small bilateral pleural effusions concerning for volume overload 07/24/2024: Echo performed yesterday shows EF approximately 55%. Her oxygenation improved after dose of IV Lasix. Will continue IV Lasix daily. Patient continues to require inpatient care past the 96-hour romie at this critical access hospital, For management of COPD, pneumonia, possible heart failure Currently on 3 L O2 07/25/2024: Continue IV Lasix for 1 more day. 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 Completed course of azithromycin and Augmentin WBC 10.9 today now off steroids Qualifiers: Laterality: bilateral Lung location: unspecified part of lung P neumonia type: due to unspecified organism Qualified Code(s): J18.9 - Pneumonia, unspecified organism (3) COPD exacerbation: Impression: COPD exacerbation is in her differential diagnosis list. Completed course of Decadron (4) Hyponatremia: Impression: Sodium today was 125. I have added salt tabs and a free water restriction. BMP in a.m. (5) Trigeminal neuralgia: Impression: This is a chronic problem. She takes carbamazepine for this. 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 She has done well. Of course metastatic breast cancer is in the differential diagnosis for her lungs, however CT a shows no lesion
[2024-07-25] MEDS: ONDANSETRON ODT 4 MG TABLET TL PRN (14:34)
[2024-07-26 05:41] LABS: BASOPHILS # (AUTO) 0.1 10^3/uL (0.0-0.1); BASOPHILS % (AUTO) 0.8 %; EOSINOPHILS % (AUTO) 16.1 %; HCT - HEMATOCRIT 37.4 % (37.0-47.0); HGB - HEMOGLOBIN 12.4 g/dL (12.0-16.0); LYMPHOCYTES # (AUTO) 1.4 10^3/uL (1.5-3.5); LYMPHOCYTES % (AUTO) 11.6 %; MEAN CORPUSCULAR HEMOGLOBIN 30.8 pg (27.0-31.0); MEAN CORPUSCULAR HGB CONC 33.2 g/dL (32.0-36.0); MEAN CORPUSCULAR VOLUME 92.8 fL (81.0-99.0); MEAN PLATELET VOLUME 8.9 fL (7.9-10.8); MONOCYTES % (AUTO) 8.4 %; NEUTROPHILS # (AUTO) 7.5 10^3/uL (1.5-6.6); NEUTROPHILS % (AUTO) 62.5 %; PLT - PLATELET COUNT 418 10^3/uL (130-450); RED BLOOD COUNT 4.03 10^6/uL (4.20-5.40); RED CELL DISTRIBUTION WIDTH 11.8 % (12.0-15.0); WHITE BLOOD COUNT 12.1 x10^3/uL (4.8-10.8)
[2024-07-26 05:55] LABS: CALCIUM 9.2 mg/dL (8.5-10.3); CREATININE 0.5 mg/dL (0.6-1.3); POTASSIUM 3.8 mmol/L (3.5-4.5)
[2024-07-26 06:03] LABS: PLATELET ESTIMATE, MANUAL NORMAL (130-450,000) (NORMAL); PLATELET MORPHOLOGY NORMAL APPEARANCE (NORMAL); RBC MORPHOLOGY (MULTIPLE) NORMAL APPEARANCE (NORMAL); WBC MORPHOLOGY (MULTIPLE) NORMAL APPEARANCE (NORMAL)
[2024-07-26 06:04] LABS: DIFFERENTIAL COMMENT MANUAL=AUTO DIFF
--- NOTE | 2024-07-26 12:51 | PROVIDER PROGRESS NOTE ---
Subjective Prog Note Date Prog Note Date: 07/26/24 Subjective Pt reports feeling: Worse Subjective: States that her respiratory status is getting better, but now she is unable to move and has pain all over her body Current Medications Current Medications Current Medications: Current Medications Generic Name Dose Route Start Last Admin Trade Name Freq PRN Reason Stop Dose Admin Acetaminophen 650 mg 07/20/24 12:38 07/21/24 08:26 Acetaminophen 325 Mg Tablet PO 650 mg Q4HR PRN Administration Pain 1 to 4, or Fever Albuterol 2.5 mg 07/20/24 12:38 07/23/24 04:51 Albuterol Neb 2.5 Mg/3 Ml INH 2.5 mg Q4H PRN Administration shortness of breath or wheezing Albuterol/Ipratropium 3 ml 07/20/24 15:00 07/26/24 11:13 Ipratropium/Albuterol 3 Ml Neb INH Not Given RTQID STAS Bacitracin 1 packet 07/21/24 10:00 07/26/24 08:54 Bacitracin Zinc Oint 1 Packet TOP 1 packet BID STAS Administration Benzonatate 100 mg 07/20/24 12:38 07/26/24 08:54 Benzonatate 100 Mg Capsule PO 100 mg TID PRN Administration Cough Furosemide 40 mg 07/24/24 09:00 07/26/24 08:54 Furosemide 40 Mg/4 Ml Vial IVP 40 mg DAILY STAS Administration Guaifenesin 1,200 mg 07/20/24 21:00 07/26/24 08:54 Guaifenesin 600 Mg Tablet PO 1,200 mg BID STAS Administration Guaifenesin 10 ml 07/23/24 08:36 07/23/24 10:02 Guaifenesin/Dextromethorphan 10 Ml Udc PO 10 ml Q6HR PRN Administration Cough Heparin Sodium (Porcine) 5,000 unit 07/20/24 21:00 07/26/24 08:54 Heparin 5,000 Unit/Ml Vial SUBQ 5,000 unit BID STAS Administration Hydroxyzine Pamoate 25 mg 07/22/24 08:26 Hydroxyzine Pamoate 25 Mg Capsule PO QPM PRN Insomnia Ibuprofen 400 mg 07/20/24 12:38 07/21/24 08:26 Ibuprofen 400 Mg Tablet PO 400 mg Q4HR PRN Administration Pain 1 to 4 Morphine Sulfate 2 mg 07/22/24 08:23 07/26/24 07:42 Morphine 2 Mg/Ml Carpuject IVP 2 mg Q2HR PRN Administration Shortness of Air/Wheezing Multivitamins/Minerals 1 tab 07/21/24 17:00 07/26/24 08:54 Multivitamin W/Minerals Tablet PO 1 tab DAILYWM STAS Administration Ondansetron HCl 4 mg 07/20/24 12:38 07/25/24 14:34 Ondansetron Odt 4 Mg Tablet TL 4 mg Q6HR PRN Administration Nausea / Vomiting Oxycodone HCl 5 mg 07/20/24 12:38 Oxycodone 5 Mg Tablet PO Q4HR PRN Pain 5 to 7 Carbamazepine 300 1 each 07/21/24 09:00 07/26/24 08:55 Mg Er Multiphase 12 PO 1 each Hr Tab DAILY STAS Administration Sodium Chloride 10 ml 07/20/24 12:38 07/24/24 19:37 Sodium Chloride Flush 0.9% 10 Ml Syringe IVP 10 ml PRN PRN Administration NEEDED PER PROVIDER ORDERS Sodium Chloride 10 ml 07/20/24 17:00 07/26/24 08:55 Sodium Chloride Flush 0.9% 10 Ml Syringe IVP 10 ml 0100,0900,1700 STAS Administration Sodium Chloride 2 gm 07/25/24 09:00 07/26/24 08:54 Sodium Chloride 1 Gm Tablet PO 2 gm BID STAS Administration Objective Vital Signs/Intake & Output Reviewed Vital Signs: Yes Vital Signs: Vital Signs x48h Temp Pulse Pulse Resp BP Pulse Ox O2 Flow Rate 07/26/24 07:39 36.5 C 112 H 18 137/59 H 94 4 07/26/24 07:10 98 H 22 4 Intake & Output: Intake & Output 07/24/24 07/25/24 07/26/24 07/27/24 05:59 05:59 05:59 05:59 Intake Total 270 / 270 1270 / 1270 200 / 200 0 / 0 Output Total 525 / 525 1850 / 1850 751 / 751 301 / 301 Balance -255 / -255 -580 / -580 -551 / -551 -301 / -301 Objective General Appearance: positive No acute distress and Alert Eyes Bilateral: positive Normal inspection ENT: positive ENT inspection nml and No signs of dehydration Neck: positive Nml inspection Respiratory: positive Chest non-tender, No respiratory distress, Wheezes and Rhonchi Cardiovascular: positive Tachycardia Abdomen: positive Non-tender and No distention Back: positive Nml inspection Skin: positive Color nml Extremities: positive Non-tender and No pedal edema Neurologic/Psychiatric: positive Oriented x3 Lab Results 07/26/24 05:14 07/26/24 05:14 Other Labs: Lab Results x24hrs 07/26/24 Range/Units 05:14 WBC 12.1 H (4.8-10.8) x10^3/uL RBC 4.03 L (4.20-5.40) 10^6/uL Hgb 12.4 (12.0-16.0) g/dL Hct 37.4 (37.0-47.0) % MCV 92.8 (81.0-99.0) fL MCH 30.8 (27.0-31.0) pg MCHC 33.2 (32.0-36.0) g/dL RDW 11.8 L (12.0-15.0) % Plt Count 418 (130-450) 10^3/uL MPV 8.9 (7.9-10.8) fL Neut # (Auto) 7.5 H (1.5-6.6) 10^3/uL Lymph # (Auto) 1.4 L (1.5-3.5) 10^3/uL [place] # (Auto) 1.0 (0.0-1.0) 10^3/uL Eos # (Auto) 2.0 H (0.0-0.7) 10^3/uL Baso # (Auto) 0.1 (0.0-0.1) 10^3/uL Absolute Nucleated RBC 0.00 x10^3/uL Band Neuts % (Manual) Not Reportable Abnorm Lymph % (Manual) Not Reportable Nucleated RBC % 0.0 /100WBC Neutrophils # (Manual) Not Reportable Lymphocytes # (Manual) Not Reportable Monocytes # (Manual) Not Reportable Eosinophils # (Manual) Not Reportable Basophils # (Manual) Not Reportable Differential Comment MANUAL=AUTO DIFF WBC Morphology NORMAL APPEARANCE (NORMAL) Platelet Estimate NORMAL (130-450,000) (NORMAL) Platelet Morphology NORMAL APPEARANCE (NORMAL) RBC Morph Micro Appear NORMAL APPEARANCE (NORMAL) Sodium 130 L (135-145) mmol/L Potassium 3.8 (3.5-4.5) mmol/L Chloride 92 L (101-111) mmol/L Carbon Dioxide 31 (21-32) mmol/L Anion Gap 7.0 (6-13) BUN 19 (6-20) mg/dL Creatinine 0.5 L (0.6-1.3) mg/dL Estimated GFR (MDRD) 117 (>89) Glucose 107 H (74-104) mg/dL Calcium 9.2 (8.5-10.3) mg/dL Assessment/Plan Problem List (1) Acute hypoxic respiratory failure: Impression: 13 L Oxymizer in the ER, Oxygen needs have waxed and waned over the past few days. She has completed a full course of Augmentin/azithromycin as well as Decadron CTA chest 07/16/2024 with moderate to severe diffuse peribronchial thickening, groundglass opacities, pulmonary vascular congestion, pulmonary artery hypertension, mildly enlarged lymph nodes Chest x-ray 07/23/2024 Prominent interstitial markings and likely small bilateral pleural effusions concerning for volume overload 07/24/2024: Echo performed yesterday shows EF approximately 55%. Her oxygenation improved after dose of IV Lasix. Will continue IV Lasix daily. Patient continues to require inpatient care past the 96-hour romie at this critical access hospital, For management of COPD, pneumonia, possible heart failure Currently on 3 L O2 07/25/2024: Continue IV Lasix for 1 more day. Likely home tomorrow with home O2 07/26/2024: Refusing to participate in home oxygen test. States she is unable to walk. I have consulted PT. Transition Lasix to p.o., starting back p.o. 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 Completed course of azithromycin and Augmentin Qualifiers: Laterality: bilateral Lung location: unspecified part of lung P neumonia type: due to unspecified organism Qualified Code(s): J18.9 - Pneumonia, unspecified organism (3) COPD exacerbation: Impression: COPD exacerbation is in her differential diagnosis list. (4) Hyponatremia: Impression: Sodium today was 130. Continue salt tabs and a free water restriction. BMP in a.m. (5) Trigeminal neuralgia: Impression: This is a chronic problem. She takes carbamazepine for this. 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 She has done well. Of course metastatic breast cancer is in the differential diagnosis for her lungs, however CT a shows no lesion
[2024-07-26] MEDS: KETOROLAC 15 MG/ML VIAL IVP STA (13:43)
[2024-07-26] MEDS: dexAMETHasone 4 MG TABLET PO SCH (13:43)
[2024-07-27 05:32] LABS: BASOPHILS # (AUTO) 0.1 10^3/uL (0.0-0.1); BASOPHILS % (AUTO) 0.8 %; EOSINOPHILS % (AUTO) 10.2 %; HCT - HEMATOCRIT 39.6 % (37.0-47.0); HGB - HEMOGLOBIN 13.1 g/dL (12.0-16.0); LYMPHOCYTES # (AUTO) 1.7 10^3/uL (1.5-3.5); LYMPHOCYTES % (AUTO) 17.8 %; MEAN CORPUSCULAR HEMOGLOBIN 30.8 pg (27.0-31.0); MEAN CORPUSCULAR HGB CONC 33.1 g/dL (32.0-36.0); MEAN PLATELET VOLUME 8.9 fL (7.9-10.8); MONOCYTES # (AUTO) 0.9 10^3/uL (0.0-1.0); MONOCYTES % (AUTO) 8.9 %; NEUTROPHILS % (AUTO) 61.4 %; PLT - PLATELET COUNT 446 10^3/uL (130-450); RED BLOOD COUNT 4.26 10^6/uL (4.20-5.40); RED CELL DISTRIBUTION WIDTH 11.9 % (12.0-15.0); WHITE BLOOD COUNT 9.7 x10^3/uL (4.8-10.8)
[2024-07-27 05:50] LABS: CALCIUM 9.6 mg/dL (8.5-10.3); CREATININE 0.7 mg/dL (0.6-1.3); POTASSIUM 3.6 mmol/L (3.5-4.5)
[2024-07-27] MEDS: SODIUM CHLORIDE 1 GM TABLET PO SCH (10:00)
[2024-07-27] MEDS: CHOLECALCIFEROL 5,000 UNIT CAPSULE PO SCH (10:01)
[2024-07-27] MEDS: FUROSEMIDE 20 MG TABLET PO SCH (10:01)
[2024-07-27] MEDS: polyethylene glycoL 3350 17 GM PACKET PO SCH (10:02)
--- NOTE | 2024-07-27 12:59 | PROVIDER PROGRESS NOTE ---
Subjective Prog Note Date Prog Note Date: 07/27/24 Subjective Pt reports feeling: Improved Subjective: Reports that her breathing is better when she is not coughing. Ambulated with occupational therapy today Current Medications Current Medications Current Medications: Current Medications Generic Name Dose Route Start Last Admin Trade Name Freq PRN Reason Stop Dose Admin Acetaminophen 650 mg 07/20/24 12:38 07/21/24 08:26 Acetaminophen 325 Mg Tablet PO 650 mg Q4HR PRN Administration Pain 1 to 4, or Fever Albuterol 2.5 mg 07/20/24 12:38 07/23/24 04:51 Albuterol Neb 2.5 Mg/3 Ml INH 2.5 mg Q4H PRN Administration shortness of breath or wheezing Albuterol/Ipratropium 3 ml 07/20/24 15:00 07/27/24 07:30 Ipratropium/Albuterol 3 Ml Neb INH 3 ml RTQID STAS Administration Bacitracin 1 packet 07/21/24 10:00 07/27/24 10:00 Bacitracin Zinc Oint 1 Packet TOP 1 packet BID STAS Administration Benzonatate 100 mg 07/20/24 12:38 07/27/24 10:01 Benzonatate 100 Mg Capsule PO 100 mg TID PRN Administration Cough Cholecalciferol 5,000 unit 07/27/24 09:00 07/27/24 10:01 Cholecalciferol 5,000 Unit Capsule PO Not Given DAILY STAS Dexamethasone 4 mg 07/27/24 13:00 Dexamethasone 4 Mg Tablet PO 07/27/24 13:01 ONCE ONE Dexamethasone 10 mg 07/28/24 09:00 Dexamethasone 4 Mg Tablet PO DAILY STAS Guaifenesin 1,200 mg 07/20/24 21:00 07/27/24 10:00 Guaifenesin 600 Mg Tablet PO 1,200 mg BID STAS Administration Guaifenesin 10 ml 07/23/24 08:36 07/23/24 10:02 Guaifenesin/Dextromethorphan 10 Ml Udc PO 10 ml Q6HR PRN Administration Cough Heparin Sodium (Porcine) 5,000 unit 07/20/24 21:00 07/27/24 10:01 Heparin 5,000 Unit/Ml Vial SUBQ Not Given BID STAS Hydroxyzine Pamoate 25 mg 07/22/24 08:26 Hydroxyzine Pamoate 25 Mg Capsule PO QPM PRN Insomnia Ibuprofen 400 mg 07/20/24 12:38 07/21/24 08:26 Ibuprofen 400 Mg Tablet PO 400 mg Q4HR PRN Administration Pain 1 to 4 Multivitamins/Minerals 1 tab 07/21/24 17:00 07/27/24 10:01 Multivitamin W/Minerals Tablet PO Not Given DAILYWM STAS Ondansetron HCl 4 mg 07/20/24 12:38 07/25/24 14:34 Ondansetron Odt 4 Mg Tablet TL 4 mg Q6HR PRN Administration Nausea / Vomiting Oxycodone HCl 5 mg 07/20/24 12:38 Oxycodone 5 Mg Tablet PO Q4HR PRN Pain 5 to 7 Carbamazepine 300 1 each 07/21/24 09:00 07/27/24 09:58 Mg Er Multiphase 12 PO 1 each Hr Tab DAILY STAS Administration Polyethylene Glycol 17 gm 07/27/24 09:00 07/27/24 10:02 Polyethylene Glycol 3350 17 Gm Packet PO 17 gm DAILY STAS Administration Sodium Chloride 10 ml 07/20/24 12:38 07/24/24 19:37 Sodium Chloride Flush 0.9% 10 Ml Syringe IVP 10 ml PRN PRN Administration NEEDED PER PROVIDER ORDERS Sodium Chloride 10 ml 07/20/24 17:00 07/27/24 10:02 Sodium Chloride Flush 0.9% 10 Ml Syringe IVP 10 ml 0100,0900,1700 STAS Administration Sodium Chloride 1 gm 07/27/24 09:00 07/27/24 10:00 Sodium Chloride 1 Gm Tablet PO 1 gm BID STAS Administration Objective Vital Signs/Intake & Output Reviewed Vital Signs: Yes Vital Signs: Vital Signs x48h Temp Pulse Pulse Pulse Pulse Resp BP 07/27/24 11:45 120 H 90 07/27/24 08:00 36.6 C 96 H 18 112/65 07/27/24 07:32 07/27/24 07:32 100 H 22 07/27/24 05:44 Pulse Ox Pulse Ox Pulse Ox O2 Flow Rate 07/27/24 11:45 80 L 92 07/27/24 08:00 93 4 07/27/24 07:32 4 07/27/24 07:32 07/27/24 05:44 4 Intake & Output: Intake & Output 11/23/24 07/26/24 07/27/24 07/28/24 05:59 05:59 05:59 05:59 Intake Total 1270 / 1270 200 / 200 100 / 100 390 / 390 Output Total 1850 / 1850 751 / 751 751 / 751 0 / 0 Balance -580 / -580 -551 / -551 -651 / -651 390 / 390 Objective General Appearance: positive No acute distress and Alert Eyes Bilateral: positive Normal inspection ENT: positive ENT inspection nml and No signs of dehydration Neck: positive Nml inspection Respiratory: positive Chest non-tender, No respiratory distress, Wheezes and Rhonchi Cardiovascular: positive Tachycardia Abdomen: positive Non-tender and No distention Back: positive Nml inspection Skin: positive Color nml Extremities: positive Non-tender and No pedal edema Neurologic/Psychiatric: positive Oriented x3 Lab Results 07/27/24 05:16 07/27/24 05:16 Other Labs: Lab Results x24hrs 07/27/24 Range/Units 05:16 WBC 9.7 (4.8-10.8) x10^3/uL RBC 4.26 (4.20-5.40) 10^6/uL Hgb 13.1 (12.0-16.0) g/dL Hct 39.6 (37.0-47.0) % MCV 93.0 (81.0-99.0) fL MCH 30.8 (27.0-31.0) pg MCHC 33.1 (32.0-36.0) g/dL RDW 11.9 L (12.0-15.0) % Plt Count 446 (130-450) 10^3/uL MPV 8.9 (7.9-10.8) fL Neut # (Auto) 6.0 (1.5-6.6) 10^3/uL Lymph # (Auto) 1.7 (1.5-3.5) 10^3/uL [place] # (Auto) 0.9 (0.0-1.0) 10^3/uL Eos # (Auto) 1.0 H (0.0-0.7) 10^3/uL Baso # (Auto) 0.1 (0.0-0.1) 10^3/uL Absolute Nucleated RBC 0.00 x10^3/uL Nucleated RBC % 0.0 /100WBC Sodium 136 (135-145) mmol/L Potassium 3.6 (3.5-4.5) mmol/L Chloride 95 L (101-111) mmol/L Carbon Dioxide 33 H (21-32) mmol/L Anion Gap 8.0 (6-13) BUN 31 H (6-20) mg/dL Creatinine 0.7 (0.6-1.3) mg/dL Estimated GFR (MDRD) 80 L (>89) Glucose 109 H (74-104) mg/dL Calcium 9.6 (8.5-10.3) mg/dL Assessment/Plan Problem List (1) Acute hypoxic respiratory failure: Impression: 13 L Oxymizer in the ER, Oxygen needs have waxed and waned over the past few days. She has completed a full course of Augmentin/azithromycin as well as Decadron CTA chest 07/16/2024 with moderate to severe diffuse peribronchial thickening, groundglass opacities, pulmonary vascular congestion, pulmonary artery hypertension, mildly enlarged lymph nodes Chest x-ray 07/23/2024 Prominent interstitial markings and likely small bilateral pleural effusions concerning for volume overload 07/24/2024: Echo performed yesterday shows EF approximately 55%. Her oxygenation improved after dose of IV Lasix. Will continue IV Lasix daily. Patient continues to require inpatient care past the 96-hour romie at this critical access hospital, For management of COPD, pneumonia, possible heart failure Currently on 3 L O2 07/25/2024: Continue IV Lasix for 1 more day. Likely home tomorrow with home O2 07/26/2024: Refusing to participate in home oxygen test. States she is unable to walk. I have consulted PT. Transition Lasix to p.o., starting back p.o. Decadron 07/27/2024: Ambulated approximately 30 feet with Occupational Therapy. She became considerably tachypneic and tachycardic and was returned to a chair. 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 Completed course of azithromycin and Augmentin Qualifiers: Laterality: bilateral Lung location: unspecified part of lung P neumonia type: due to unspecified organism Qualified Code(s): J18.9 - Pneumonia, unspecified organism (3) COPD exacerbation: Impression: COPD exacerbation is in her differential diagnosis list. She has no smoking history and no environmental concerns (4) Hyponatremia: Impression: Sodium 136 today. Reduce dose of salt tabs to 1 g. BMP in a.m. (5) Trigeminal neuralgia: Impression: This is a chronic problem. She takes carbamazepine for this. 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 She has done well. Of course metastatic breast cancer is in the differential diagnosis for her lungs, however CT a shows no lesion
--- NOTE | 2024-07-27 13:45 | OT Plan of Care ---
OT Inpatient POC Diagnosis DIAGNOSIS Diagnosis: respiratory failure MEDICAL/SURGICAL HISTORY Medical History (Updated 07/20/24 @ 12:49 by VAMSI Antonio) Trigeminal neuralgia History of melanoma History of Mohs micrographic surgery for skin cancer History of breast cancer Asthma History of rheumatic fever as a child Surgical History (Updated 07/16/24 @ 10:24 by Kristina Peralta RN) History of hysterectomy History of mastectomy Assessment and Goals ASSESSMENT Assessment: Pt is an 84 y/o female adm to hospital with chronically worsening SOB (x2 urgent care); Work up revealed Community acquired PNA. Hospital course complicated by increasing O2 requirements from 13 L Oxymizer with chronic cough. Weaned to 4-5L NC. Pt met supine in bed, Anxious but willing to participate with therapy. A&Ox4. Met on 4L NC - HR 90bpm, O2 92% at rest. Pt performed supine to sit EOB, sit to stand, and ambulation 20ft to/from bathroom using 2WW CGA - Pt quick to fatigue with coughing fit requiring seat with O2 desaturation to 80%, HR max 120's - Recovery to 92% with increased O2 to 5L NC and PLB within 1 min of rest. Pt with good understanding and implementation of breathing/pacing strategies and use of IS. At this time pt presents with significant respiratory deficits impairing safe and indp functional mobility and ADL's. Will benefit from cont OT services during acute stay to progress endurance, activity tolerance, and ADL status required for safe d/c. Rec SNF vs home with services/24 hr assist if pt refuses at this time. -Activities of Daily Living Improve Upper Extremity Dressing to:: Independent Improve Lower Extremity Dressing to:: Independent Improve Grooming/Hygiene to:: Independent Improve Bathing to:: Independent Improve Toileting to:: Independent Other Activities of Daily Living Goal:: While maintaining Spo2 above 90% with appropriate ammount of O2 OT Inpatient Plan PLAN Treatment Frequency: 1x/day Duration: Until discharge -Discharge Recommendations Discharge Location: Intermediate Facility Transport Needs at Discharge: Personal vehicle Comment: Rec d/c SNF vs home with services/24 hr assist pending continued mobility trials for Spo2 desaturation and O2 needs
[2024-07-27] MEDS: dexAMETHasone 4 MG TABLET PO ONE (14:59)
--- NOTE | 2024-07-27 16:29 | PT Plan of Care ---
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 Now on 4L O2, sats 93-98% at rest. Pt lives indep in apartment with walk in shower, no stairs and indep with mobility and ADLs prior to this hospital admit. Upon PT eval, pt on 4L, 95% at rest, HR 117. Pt denies anxiety or adverse cardiac symptoms. STS w/ FWW and CGA, HR immediately increases to 130bpm and pt desats to 77%. Pt cued to sit, recovers vitals WNL in <2 min. During second STS, sats remain 90% or higher and HR varies from 79-110bpm. Pt able to amb w/ FWW approx 5' fwd and backward with good safety awareness and sequencing, but desats again to high 80s. Gait training and activity progression limited by unstable HR and SpO2. Pt may benefit from skilled PT in acute setting to improve activity tolerance. When medically clear, PT rec dc to SNF as pt is far below baseline and requiring assist for mobility and ADLs. GOALS Improve supine to sit to:: Modified Independent Improve sit to stand to:: Modified Independent Improve sit to supine to:: Modified Independent Improve gait ability to:: SBA Advance Assistive Device to:: None and Front Wheeled Walker Increase distance walked to (in feet):: 60 PLAN Frequency: 1-2x/day Duration: Until goals are met DISCHARGE RECOMMENDATIONS Discharge Location: Custodial Facility Support/Services Needed: With assist DC Equipment Recommended: Front wheeled walker Other Discharge Equipment: may need FWW Transport Needs at Discharge: B.L.S Other: BLS d/t unstable vitals, may progress to wc van
--- NOTE | 2024-07-27 16:52 | CT Report ---
PROCEDURE: CT Chest WO INDICATIONS: Eval interstitial lung disease TECHNIQUE: A CT scan of the chest was performed. Intravenous contrast media was not administered. Images were re corded and evaluated at appropriate window settings. Reformats: axial MIP of the chest, coronal and s agittal. For radiation dose reduction, the following was used: automated exposure control, adjustment of mA and/or kV according to patient size. COMPARISON: CXR 07/23/2024, 07/20/2024. CT pulmonary angiogram 07/16/2024. FINDINGS: Image quality: Diagnostic. Chest wall and lower neck: No thyroid nodule which requires sonographic follow up. No axillary or sup raclavicular adenopathy by size. Left breast clips. Lungs and pleura: There is near-complete collapse of the left lower lobe. There is bilateral patchy g roundglass opacity. The central airways are clear. No pulmonary nodules identified. No honeycombing. No conspicuous reticulation. Mediastinum: Heart size is normal. Moderate coronary artery calcifications. No pericardial effusion. No large vessel abnormality. No mediastinal adenopathy by size criteria. Bones: No aggressive osseous abnormality. Upper Abdomen: Unremarkable. IMPRESSION: 1. Collapse of the left lower lobe which is new compared to 07/16/2024. 2. Bilateral patchy groundglass opacity, increased. This could be due to infectious/inflammatory etio logy. 3. No honeycombing. Reviewed by: Shon Dotson MD on 07/27/2024 4:51 PM PST Approved by: Shon Dotson MD on 07/27/2024 4:51 PM PST Station ID: [id number]
[2024-07-28 05:38] LABS: BASOPHILS # (AUTO) 0.1 10^3/uL (0.0-0.1); BASOPHILS % (AUTO) 0.6 %; EOSINOPHILS # (AUTO) 0.4 10^3/uL (0.0-0.7); EOSINOPHILS % (AUTO) 4.3 %; HCT - HEMATOCRIT 39.1 % (37.0-47.0); HGB - HEMOGLOBIN 12.8 g/dL (12.0-16.0); LYMPHOCYTES # (AUTO) 1.5 10^3/uL (1.5-3.5); MEAN CORPUSCULAR HEMOGLOBIN 30.8 pg (27.0-31.0); MEAN CORPUSCULAR HGB CONC 32.7 g/dL (32.0-36.0); MONOCYTES # (AUTO) 0.6 10^3/uL (0.0-1.0); MONOCYTES % (AUTO) 7.2 %; NEUTROPHILS # (AUTO) 5.7 10^3/uL (1.5-6.6); NEUTROPHILS % (AUTO) 68.8 %; PLT - PLATELET COUNT 445 10^3/uL (130-450); RED BLOOD COUNT 4.16 10^6/uL (4.20-5.40); RED CELL DISTRIBUTION WIDTH 11.9 % (12.0-15.0); WHITE BLOOD COUNT 8.3 x10^3/uL (4.8-10.8)
[2024-07-28 06:02] LABS: CALCIUM 9.7 mg/dL (8.5-10.3); CREATININE 0.8 mg/dL (0.6-1.3)
[2024-07-28] MEDS: dexAMETHasone 4 MG TABLET PO SCH (08:52)
--- NOTE | 2024-07-28 11:07 | PROVIDER PROGRESS NOTE ---
Subjective Prog Note Date Prog Note Date: 07/28/24 Subjective Subjective: Presents to the emergency department for the second time inside of a week with complaints of shortness of breath. She has been struggling with a cough for about 6 months. She states that she has been getting increasingly more short of breath and having more and more cough at home. Several different courses of steroids have been prescribed. It is not clear that she has taken all of them. I think she does not like the way the steroids make her feel. She has been compliant with her albuterol and Advair at home. She has a referral in progress to pulmonology. She has not gotten this appointment scheduled. At home she has been having worsening dyspnea which is worse on exertion. She is able to lay down and get comfortable at night She has never smoked in her lifetime. For CODE STATUS she is DNR/DNI. Her daughter who lives in [place] is her surrogate decision-maker 07/28/2004: Patient states that she is breathing fine. However she states she is at baseline. She is still on supplemental oxygen. Patient states that she is compliant with her Acapella. Current Medications Current Medications Current Medications: Current Medications Generic Name Dose Route Start Last Admin Trade Name Freq PRN Reason Stop Dose Admin Acetaminophen 650 mg 07/20/24 12:38 07/21/24 08:26 Acetaminophen 325 Mg Tablet PO 650 mg Q4HR PRN Administration Pain 1 to 4, or Fever Albuterol 2.5 mg 07/20/24 12:38 07/23/24 04:51 Albuterol Neb 2.5 Mg/3 Ml INH 2.5 mg Q4H PRN Administration shortness of breath or wheezing Albuterol/Ipratropium 3 ml 07/20/24 15:00 07/28/24 09:31 Ipratropium/Albuterol 3 Ml Neb INH Not Given RTQID STAS Bacitracin 1 packet 07/21/24 10:00 07/28/24 08:55 Bacitracin Zinc Oint 1 Packet TOP Not Given BID STAS Benzonatate 100 mg 07/20/24 12:38 07/28/24 08:53 Benzonatate 100 Mg Capsule PO 100 mg TID PRN Administration Cough Cholecalciferol 5,000 unit 07/27/24 09:00 07/28/24 08:55 Cholecalciferol 5,000 Unit Capsule PO Not Given DAILY STAS Guaifenesin 1,200 mg 07/20/24 21:00 07/28/24 08:53 Guaifenesin 600 Mg Tablet PO 1,200 mg BID STAS Administration Guaifenesin 10 ml 07/23/24 08:36 07/23/24 10:02 Guaifenesin/Dextromethorphan 10 Ml Udc PO 10 ml Q6HR PRN Administration Cough Heparin Sodium (Porcine) 5,000 unit 07/20/24 21:00 07/28/24 08:54 Heparin 5,000 Unit/Ml Vial SUBQ 5,000 unit BID STAS Administration Hydroxyzine Pamoate 25 mg 07/22/24 08:26 Hydroxyzine Pamoate 25 Mg Capsule PO QPM PRN Insomnia Ibuprofen 400 mg 07/20/24 12:38 07/27/24 14:59 Ibuprofen 400 Mg Tablet PO 400 mg Q4HR PRN Administration Pain 1 to 4 Multivitamins/Minerals 1 tab 07/21/24 17:00 07/28/24 08:55 Multivitamin W/Minerals Tablet PO Not Given DAILYWM STAS Ondansetron HCl 4 mg 07/20/24 12:38 07/25/24 14:34 Ondansetron Odt 4 Mg Tablet TL 4 mg Q6HR PRN Administration Nausea / Vomiting Oxycodone HCl 5 mg 07/20/24 12:38 Oxycodone 5 Mg Tablet PO Q4HR PRN Pain 5 to 7 Carbamazepine 300 1 each 07/21/24 09:00 07/28/24 08:51 Mg Er Multiphase 12 PO 1 each Hr Tab DAILY STAS Administration Polyethylene Glycol 17 gm 07/27/24 09:00 07/28/24 08:54 Polyethylene Glycol 3350 17 Gm Packet PO 17 gm DAILY STAS Administration Sodium Chloride 10 ml 07/20/24 12:38 07/24/24 19:37 Sodium Chloride Flush 0.9% 10 Ml Syringe IVP 10 ml PRN PRN Administration NEEDED PER PROVIDER ORDERS Sodium Chloride 10 ml 07/20/24 17:00 07/28/24 08:55 Sodium Chloride Flush 0.9% 10 Ml Syringe IVP 10 ml 0100,0900,1700 STAS Administration Sodium Chloride 1 gm 07/27/24 09:00 07/28/24 08:52 Sodium Chloride 1 Gm Tablet PO 1 gm BID STAS Administration Objective Vital Signs/Intake & Output Reviewed Vital Signs: Yes Vital Signs: Vital Signs x48h Temp Pulse Resp BP Pulse Ox O2 Flow Rate 07/28/24 08:05 36.5 C 86 18 136/74 H 94 4 Intake & Output: Intake & Output 07/26/24 07/27/24 07/28/24 07/29/24 05:59 05:59 05:59 05:59 Intake Total 200 / 200 100 / 100 980 / 980 120 / 120 Output Total 751 / 751 751 / 751 Balance -551 / -551 -651 / -651 955 / 955 120 / 120 Objective: General Appearance: positive No acute distress and Alert Eyes Bilateral: positive Normal inspection ENT: positive ENT inspection nml and No signs of dehydration Neck: positive Nml inspection Respiratory: positive Chest non-tender, No respiratory distress, Wheezes and Rhonchi Cardiovascular: positive Tachycardia Abdomen: positive Non-tender and No distention Back: positive Nml inspection Skin: positive Color nml Extremities: positive Non-tender and No pedal edema Neurologic/Psychiatric: positive Oriented x3 Objective General Appearance: positive Other Lab Results 07/28/24 05:11 07/28/24 05:11 Other Labs: Lab Results x24hrs 07/28/24 Range/Units 05:11 WBC 8.3 (4.8-10.8) x10^3/uL RBC 4.16 L (4.20-5.40) 10^6/uL Hgb 12.8 (12.0-16.0) g/dL Hct 39.1 (37.0-47.0) % MCV 94.0 (81.0-99.0) fL MCH 30.8 (27.0-31.0) pg MCHC 32.7 (32.0-36.0) g/dL RDW 11.9 L (12.0-15.0) % Plt Count 445 (130-450) 10^3/uL MPV 9.0 (7.9-10.8) fL Neut # (Auto) 5.7 (1.5-6.6) 10^3/uL Lymph # (Auto) 1.5 (1.5-3.5) 10^3/uL Milam # (Auto) 0.6 (0.0-1.0) 10^3/uL Eos # (Auto) 0.4 (0.0-0.7) 10^3/uL Baso # (Auto) 0.1 (0.0-0.1) 10^3/uL Absolute Nucleated RBC 0.00 x10^3/uL Nucleated RBC % 0.0 /100WBC Sodium 136 (135-145) mmol/L Potassium 4.0 (3.5-4.5) mmol/L Chloride 97 L (101-111) mmol/L Carbon Dioxide 32 (21-32) mmol/L Anion Gap 7.0 (6-13) BUN 37 H (6-20) mg/dL Creatinine 0.8 (0.6-1.3) mg/dL Estimated GFR (MDRD) 68 L (>89) Glucose 107 H (74-104) mg/dL Calcium 9.7 (8.5-10.3) mg/dL Diagnostic Imaging Diagnostic Imaging Results: positive Final report reviewed Assessment/Plan Problem List (1) Acute hypoxic respiratory failure: Impression: Recent chest CT done on 07/27/2024 indicates new left lower lobe collapse, bilateral patchy groundglass opacities have increased. Was negative secondary to infectious etiology. No honeycombing. No obvious sign of Interstitial lung disease DC Decadron. (2) Pneumonia: Impression: Patient was treated with azithromycin and a course of Augmentin. New findings on CT of the chest bilateral opacities with left lung collapse. Follow MRSA swab, strep antigen and viral respiratory panel. Start patient on vancomycin and cefepime. 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
--- NOTE | 2024-07-28 11:29 | PHARMACY PROGRESS NOTE ---
Vancomycin Therapy Monitoring Patient Information Vancomycin Pt Height (inches): 62 Vancomycin Patient Weight (kg): 54.1 Vanco Rx Serum Creatinine (mg/dL): 0.8 Concurrent Antibiotics: CEFEPIME Vancomycin Therapy Goals Treatment Indication: HAP Vancomycin Target Range: Vancomycin AUC Target Range 400-600 mcg*h/ml Plan: Vancomycin Loading Dose (GM, if applicable): 1250 mg x1 New Regimen (Enter new dose and interval): 1g q24h starting 07/29 @ 1200 Vancomycin Level Recommendation: Vancomycin Level Recommendation (after 3 doses if continuing. anticipated auc 440. Following MRSA nares with potential to discontinue if negative.)
[2024-07-28 12:02] LABS: RAPID STREP SCREEN Negative (Negative)
[2024-07-28] MEDS: CEFEPIME 2 GM in SODIUM CHLORIDE 0.9% MINIBAG 100 ML IV SCH (12:10)
[2024-07-28 12:58] LABS: B. PARAPERTUSSIS- RESP PCR PAN NOT DETECTED; B. PERTUSSIS- RESP PCR PANEL NOT DETECTED; C. PNEUMONIAE- RESP PCR PANEL NOT DETECTED; CORONAVIRUS 229E-RESP PCR NOT DETECTED; CORONAVIRUS HKU1-RESP PCR NOT DETECTED; CORONAVIRUS NL63-RESP PCR NOT DETECTED; CORONAVIRUS OC43-RESP PCR NOT DETECTED; HUMAN METAPNEUMOVIRUS NOT DETECTED; INFLUENZA A- RESP PCR PANEL NOT DETECTED; INFLUENZA B - RESP PCR PANEL NOT DETECTED; M. PNEUMONIAE- RESP PCR PANEL NOT DETECTED; PARAINFLUENZA VIRUS 1 NOT DETECTED; PARAINFLUENZA VIRUS 2 NOT DETECTED; PARAINFLUENZA VIRUS 3 NOT DETECTED; PARAINFLUENZA VIRUS 4 NOT DETECTED; RHINOVIRUS/ENTEROVIRUS NOT DETECTED; RSV- RESP PCR PANEL NOT DETECTED; SARS-CoV-2 -RESP PCR PANEL NOT DETECTED
[2024-07-28] MEDS: VANCOMYCIN INJ 1 GM, VANCOMYCIN INJ 250 MG in SODIUM CHLORIDE 0.9% 250 ML IV ONE (12:58)
[2024-07-28] MEDS ORDERED: ZINC OXIDE 20% OINT 30 GM TUBE TOP PRN (18:53)
[2024-07-28] MEDS: SODIUM CHLORIDE 3% INH SCH (20:29)
[2024-07-28] MEDS: HYPERTONIC INH SCH (20:29)
[2024-07-29 06:02] LABS: BASOPHILS # (AUTO) 0.1 10^3/uL (0.0-0.1); BASOPHILS % (AUTO) 0.8 %; EOSINOPHILS # (AUTO) 0.9 10^3/uL (0.0-0.7); HCT - HEMATOCRIT 36.9 % (37.0-47.0); HGB - HEMOGLOBIN 11.8 g/dL (12.0-16.0); LYMPHOCYTES # (AUTO) 1.9 10^3/uL (1.5-3.5); MEAN CORPUSCULAR HEMOGLOBIN 30.5 pg (27.0-31.0); MEAN CORPUSCULAR VOLUME 95.3 fL (81.0-99.0); MEAN PLATELET VOLUME 9.1 fL (7.9-10.8); MONOCYTES # (AUTO) 0.7 10^3/uL (0.0-1.0); MONOCYTES % (AUTO) 9.5 %; NEUTROPHILS % (AUTO) 51.9 %; PLT - PLATELET COUNT 411 10^3/uL (130-450); RED BLOOD COUNT 3.87 10^6/uL (4.20-5.40); RED CELL DISTRIBUTION WIDTH 12.1 % (12.0-15.0); WHITE BLOOD COUNT 7.7 x10^3/uL (4.8-10.8)
[2024-07-29 06:20] LABS: CREATININE 0.6 mg/dL (0.6-1.3); POTASSIUM 3.5 mmol/L (3.5-4.5)
--- NOTE | 2024-07-29 09:23 | PROVIDER PROGRESS NOTE ---
Subjective Prog Note Date Prog Note Date: 07/29/24 Subjective Subjective: Presents to the emergency department for the second time inside of a week with complaints of shortness of breath. She has been struggling with a cough for about 6 months. She states that she has been getting increasingly more short of breath and having more and more cough at home. Several different courses of steroids have been prescribed. It is not clear that she has taken all of them. I think she does not like the way the steroids make her feel. She has been compliant with her albuterol and Advair at home. She has a referral in progress to pulmonology. She has not gotten this appointment scheduled. At home she has been having worsening dyspnea which is worse on exertion. She is able to lay down and get comfortable at night She has never smoked in her lifetime. For CODE STATUS she is DNR/DNI. Her daughter who lives in [place] is her surrogate decision-maker 07/28/2024: Patient states that she is breathing fine. However she states she is at baseline. She is still on supplemental oxygen. Patient states that she is compliant with her Acapella. 07/29/2024: Patient states that she is coughing, using her Acapella and incentive spirometer regularly. Patient states that she is going home on Saturday. Current Medications Current Medications Current Medications: Current Medications Generic Name Dose Route Start Last Admin Trade Name Freq PRN Reason Stop Dose Admin Acetaminophen 650 mg 07/20/24 12:38 07/21/24 08:26 Acetaminophen 325 Mg Tablet PO 650 mg Q4HR PRN Administration Pain 1 to 4, or Fever Albuterol 2.5 mg 07/20/24 12:38 07/23/24 04:51 Albuterol Neb 2.5 Mg/3 Ml INH 2.5 mg Q4H PRN Administration shortness of breath or wheezing Albuterol/Ipratropium 3 ml 07/20/24 15:00 07/29/24 08:52 Ipratropium/Albuterol 3 Ml Neb INH Not Given RTQID STAS Bacitracin 1 packet 07/21/24 10:00 07/28/24 21:34 Bacitracin Zinc Oint 1 Packet TOP Not Given BID STAS Benzonatate 100 mg 07/20/24 12:38 07/28/24 08:53 Benzonatate 100 Mg Capsule PO 100 mg TID PRN Administration Cough Cholecalciferol 5,000 unit 07/27/24 09:00 07/28/24 08:55 Cholecalciferol 5,000 Unit Capsule PO Not Given DAILY STAS Guaifenesin 1,200 mg 07/20/24 21:00 07/28/24 21:32 Guaifenesin 600 Mg Tablet PO 1,200 mg BID STAS Administration Guaifenesin 10 ml 07/23/24 08:36 07/23/24 10:02 Guaifenesin/Dextromethorphan 10 Ml Udc PO 10 ml Q6HR PRN Administration Cough Heparin Sodium (Porcine) 5,000 unit 07/20/24 21:00 07/28/24 21:33 Heparin 5,000 Unit/Ml Vial SUBQ 5,000 unit BID STAS Administration Hydroxyzine Pamoate 25 mg 07/22/24 08:26 Hydroxyzine Pamoate 25 Mg Capsule PO QPM PRN Insomnia Cefepime HCl 2 gm/ Sodium 100 mls @ 200 mls/hr 07/28/24 12:00 07/28/24 22:40 Chloride IV Infused BID STAS Infusion Ibuprofen 400 mg 07/20/24 12:38 07/27/24 14:59 Ibuprofen 400 Mg Tablet PO 400 mg Q4HR PRN Administration Pain 1 to 4 Multi-Ingredient Ointment 1 applic 07/28/24 18:53 Zinc Oxide 20% Oint 30 Gm Tube TOP PRN PRN Skin Care Multivitamins/Minerals 1 tab 07/21/24 17:00 07/28/24 08:55 Multivitamin W/Minerals Tablet PO Not Given DAILYWM STAS Ondansetron HCl 4 mg 07/20/24 12:38 07/25/24 14:34 Ondansetron Odt 4 Mg Tablet TL 4 mg Q6HR PRN Administration Nausea / Vomiting Oxycodone HCl 5 mg 07/20/24 12:38 Oxycodone 5 Mg Tablet PO Q4HR PRN Pain 5 to 7 Carbamazepine 300 1 each 07/21/24 09:00 07/28/24 08:51 Mg Er Multiphase 12 PO 1 each Hr Tab DAILY STAS Administration Polyethylene Glycol 17 gm 07/27/24 09:00 07/28/24 08:54 Polyethylene Glycol 3350 17 Gm Packet PO 17 gm DAILY STAS Administration Sodium Chloride 10 ml 07/20/24 12:38 07/24/24 19:37 Sodium Chloride Flush 0.9% 10 Ml Syringe IVP 10 ml PRN PRN Administration NEEDED PER PROVIDER ORDERS Sodium Chloride 10 ml 07/20/24 17:00 07/28/24 23:26 Sodium Chloride Flush 0.9% 10 Ml Syringe IVP 10 ml 0100,0900,1700 STAS Administration Sodium Chloride 4 ml 07/28/24 19:00 07/29/24 08:52 Sodium Chloride 3% Hypertonic 500 Ml Bag INH 07/29/24 13:01 Not Given RTQ6H STAS Objective Vital Signs/Intake & Output Reviewed Vital Signs: Yes Vital Signs: Vital Signs x48h Temp Pulse Resp BP Pulse Ox O2 Flow Rate 07/28/24 08:05 36.5 C 86 18 136/74 H 94 4 Intake & Output: Intake & Output 07/27/24 07/28/24 07/29/24 07/30/24 05:59 05:59 05:59 05:59 Intake Total 100 / 100 980 / 980 1020 / 1020 Output Total 751 / 751 775 / 775 Balance -651 / -651 955 / 955 245 / 245 Objective General Appearance: positive No acute distress and Alert Eyes Bilateral: positive Normal inspection, PERRL and EOMI ENT: positive ENT inspection nml and Pharynx nml Neck: positive Nml inspection, Thyroid nml and Trachea midline Respiratory: positive Chest non-tender and No respiratory distress Cardiovascular: positive Regular rate & rhythm and No murmur Abdomen: positive Non-tender, No organomegaly, Nml bowel sounds and No distention Skin: positive Color nml and No rash Extremities: positive Non-tender, Full ROM and Nml appearance Neurologic/Psychiatric: positive Oriented x3 and CN's nml (2-12) Lab Results 07/29/24 05:30 07/29/24 05:30 Other Labs: Lab Results x24hrs 07/29/24 07/28/24 07/28/24 Range/Units 05:30 11:50 10:55 WBC 7.7 (4.8-10.8) x10^3/uL RBC 3.87 L (4.20-5.40) 10^6/uL Hgb 11.8 L (12.0-16.0) g/dL Hct 36.9 L (37.0-47.0) % MCV 95.3 (81.0-99.0) fL MCH 30.5 (27.0-31.0) pg MCHC 32.0 (32.0-36.0) g/dL RDW 12.1 (12.0-15.0) % Plt Count 411 (130-450) 10^3/uL MPV 9.1 (7.9-10.8) fL Neut # (Auto) 4.0 (1.5-6.6) 10^3/uL Lymph # (Auto) 1.9 (1.5-3.5) 10^3/uL Will # (Auto) 0.7 (0.0-1.0) 10^3/uL Eos # (Auto) 0.9 H (0.0-0.7) 10^3/uL Baso # (Auto) 0.1 (0.0-0.1) 10^3/uL Absolute Nucleated RBC 0.00 x10^3/uL Nucleated RBC % 0.0 /100WBC Sodium 140 (135-145) mmol/L Potassium 3.5 (3.5-4.5) mmol/L Chloride 102 (101-111) mmol/L Carbon Dioxide 31 (21-32) mmol/L Anion Gap 7.0 (6-13) BUN 37 H (6-20) mg/dL Creatinine 0.6 (0.6-1.3) mg/dL Estimated GFR (MDRD) 95 (>89) Glucose 95 (74-104) mg/dL Calcium 9.0 (8.5-10.3) mg/dL Nasal Adenovirus (PCR) NOT DETECTED Nasal B. parapertussis DNA (PCR) NOT DETECTED Nasal Coronavir 229E PCR NOT DETECTED Nasal Coronavir HKU1 PCR NOT DETECTED Nasal Coronavir NL63 PCR NOT DETECTED Nasal Coronavir OC43 PCR NOT DETECTED Nasal Enterovir/Rhinovir PCR NOT DETECTED Nasal Influenza B PCR NOT DETECTED Nasal Influenza A PCR NOT DETECTED Nasal Parainfluen 1 PCR NOT DETECTED Nasal Parainfluen 2 PCR NOT DETECTED Nasal Parainfluen 3 PCR NOT DETECTED Nasal Parainfluen 4 PCR NOT DETECTED Nasal RSV (PCR) NOT DETECTED Nasal Screen MRSA (PCR) NEGATIVE (NEGATIVE) Nasal B.pertussis DNA PCR NOT DETECTED Nasal C.pneumoniae (PCR) NOT DETECTED Omkar Human Metapneumo PCR NOT DETECTED Nasal M.pneumoniae (PCR) NOT DETECTED Nasal SARS-CoV-2 (PCR) NOT DETECTED Group A Strep Rapid Negative (Negative) Diagnostic Imaging Diagnostic Imaging Results: positive Final report reviewed Assessment/Plan Problem List (1) Acute hypoxic respiratory failure: Impression: Recent chest CT done on 07/27/2024 indicates new left lower lobe collapse, bilateral patchy groundglass opacities have increased. Was negative secondary to infectious etiology. No honeycombing. No obvious sign of Interstitial lung disease Off Decadron, status post p.o. pneumonia directed antibiotics with azithromycin and Augmentin. Off O2 at rest, 2L NC while walking Road test before d/c. (2) Pneumonia: Impression: tatus post p.o. pneumonia directed antibiotics with azithromycin and Augmentin. Pt now cefepime. CT chest -> LLL collapse, mucus plugging. On Hypertonic saline nebs, acapella, abx. Pt is often non compliant. MRSA swab, strep antigen and viral respiratory panel ->negative . DC vancomycin, continue cefepime. Qualifiers: Laterality: bilateral Lung location: unspecified part of lung P neumonia type: due to unspecified organism Qualified Code(s): J18.9 - Pneumonia, unspecified organism (3) Hyponatremia: Impression: Resolved (4) Trigeminal neuralgia: Impression: continue home meds carbanazepine (5) History of breast cancer: Impression: History of stage I DCIS in 2010 treated surgically (6) Elevated BUN: Impression: Bun continues to trend upwards, encourage fluid intake Start pt on maintenance fluid. monitor urine output
[2024-07-29] MEDS ORDERED: VANCOMYCIN INJ 1 GM in SODIUM CHLORIDE 0.9% 250 ML IV SCH (12:00)
[2024-07-29] MEDS: HYPERTONIC INH SCH (16:47)
[2024-07-29] MEDS: SODIUM CHLORIDE 3% INH SCH (16:47)
[2024-07-30 06:39] LABS: CREATININE 0.7 mg/dL (0.6-1.3); POTASSIUM 3.8 mmol/L (3.5-4.5)
--- NOTE | 2024-07-30 09:26 | PROVIDER PROGRESS NOTE ---
Subjective Prog Note Date Prog Note Date: 07/30/24 Subjective Subjective: Presents to the emergency department for the second time inside of a week with complaints of shortness of breath. She has been struggling with a cough for about 6 months. She states that she has been getting increasingly more short of breath and having more and more cough at home. Several different courses of steroids have been prescribed. It is not clear that she has taken all of them. I think she does not like the way the steroids make her feel. She has been compliant with her albuterol and Advair at home. She has a referral in progress to pulmonology. She has not gotten this appointment scheduled. At home she has been having worsening dyspnea which is worse on exertion. She is able to lay down and get comfortable at night She has never smoked in her lifetime. For CODE STATUS she is DNR/DNI. Her daughter who lives in [place] is her surrogate decision-maker 07/28/2024: Patient states that she is breathing fine. However she states she is at baseline. She is still on supplemental oxygen. Patient states that she is compliant with her Acapella. 07/29/2024: Patient states that she is coughing, using her Acapella and incentive spirometer regularly. Patient states that she is going home on Saturday. 07/30/2024: Patient states that she is doing much better, she feels that the Hypersaline treatment is helping her. Again patient confirms that she is going home on Saturday. Current Medications Current Medications Current Medications: Current Medications Generic Name Dose Route Start Last Admin Trade Name Freq PRN Reason Stop Dose Admin Acetaminophen 650 mg 07/20/24 12:38 07/21/24 08:26 Acetaminophen 325 Mg Tablet PO 650 mg Q4HR PRN Administration Pain 1 to 4, or Fever Albuterol 2.5 mg 07/20/24 12:38 07/23/24 04:51 Albuterol Neb 2.5 Mg/3 Ml INH 2.5 mg Q4H PRN Administration shortness of breath or wheezing Albuterol/Ipratropium 3 ml 07/20/24 15:00 07/30/24 08:27 Ipratropium/Albuterol 3 Ml Neb INH 3 ml RTQID STAS Administration Bacitracin 1 packet 07/21/24 10:00 07/30/24 09:03 Bacitracin Zinc Oint 1 Packet TOP 1 packet BID STAS Administration Benzonatate 100 mg 07/20/24 12:38 07/29/24 10:08 Benzonatate 100 Mg Capsule PO 100 mg TID PRN Administration Cough Cholecalciferol 5,000 unit 07/27/24 09:00 07/30/24 09:03 Cholecalciferol 5,000 Unit Capsule PO Not Given DAILY STAS Guaifenesin 1,200 mg 07/20/24 21:00 07/30/24 09:02 Guaifenesin 600 Mg Tablet PO 1,200 mg BID STAS Administration Guaifenesin 10 ml 07/23/24 08:36 07/23/24 10:02 Guaifenesin/Dextromethorphan 10 Ml Udc PO 10 ml Q6HR PRN Administration Cough Heparin Sodium (Porcine) 5,000 unit 07/20/24 21:00 07/30/24 09:02 Heparin 5,000 Unit/Ml Vial SUBQ 5,000 unit BID STAS Administration Hydroxyzine Pamoate 25 mg 07/22/24 08:26 Hydroxyzine Pamoate 25 Mg Capsule PO QPM PRN Insomnia Cefepime HCl 2 gm/ Sodium 100 mls @ 200 mls/hr 07/28/24 12:00 07/30/24 09:02 Chloride IV 200 mls/hr BID STAS Administration Sodium Chloride 1,000 mls @ 75 mls/hr 07/30/24 09:00 Normal Saline 0.9% IV UD STAS Ibuprofen 400 mg 07/20/24 12:38 07/27/24 14:59 Ibuprofen 400 Mg Tablet PO 400 mg Q4HR PRN Administration Pain 1 to 4 Multi-Ingredient Ointment 1 applic 07/28/24 18:53 Zinc Oxide 20% Oint 30 Gm Tube TOP PRN PRN Skin Care Multivitamins/Minerals 1 tab 07/21/24 17:00 07/30/24 09:03 Multivitamin W/Minerals Tablet [facility] Ondans[facility] 4 mg 07/20/24 12:38 07/25/24 14:34 Ondansetron Odt 4 Mg Tablet TL 4 mg Q6HR PRN Administration Nausea / Vomiting Oxycodone HCl 5 mg 07/20/24 12:38 Oxycodone 5 Mg Tablet PO Q4HR PRN Pain 5 to 7 Carbamazepine 300 1 each 07/21/24 09:00 07/30/24 09:06 Mg Er Multiphase 12 PO 1 each Hr Tab DAILY STAS Administration Polyethylene Glycol 17 gm 07/27/24 09:00 07/30/24 09:03 Polyethylene Glycol 3350 17 Gm Packet PO 17 gm DAILY STAS Administration Sodium Chloride 10 ml 07/20/24 12:38 07/24/24 19:37 Sodium Chloride Flush 0.9% 10 Ml Syringe IVP 10 ml PRN PRN Administration NEEDED PER PROVIDER ORDERS Sodium Chloride 10 ml 07/20/24 17:00 07/30/24 09:03 Sodium Chloride Flush 0.9% 10 Ml Syringe IVP 10 ml 0100,0900,1700 STAS Administration Sodium Chloride 4 ml 07/29/24 15:00 07/30/24 08:27 Sodium Chloride 3% Hypertonic 500 Ml Bag INH 07/31/24 11:01 4 ml RTQID STAS Administration Objective Vital Signs/Intake & Output Reviewed Vital Signs: Yes Vital Signs: Vital Signs x48h Temp Pulse Pulse Resp BP Pulse Ox O2 Flow Rate 07/30/24 08:32 3 07/30/24 08:32 75 20 07/30/24 08:01 36.6 C 93 H 20 137/73 H 93 3 Intake & Output: Intake & Output 07/28/24 07/29/24 07/30/24 07/31/24 05:59 05:59 05:59 05:59 Intake Total 980 / 980 1020 / 1020 940 / 940 360 / 360 Output Total 775 / 775 950 / 950 100 / 100 Balance 955 / 955 245 / 245 -10 / -10 260 / 260 Objective General Appearance: positive No acute distress and Alert Eyes Bilateral: positive Normal inspection, PERRL and EOMI ENT: positive ENT inspection nml and Pharynx nml Neck: positive Nml inspection, Thyroid nml and Trachea midline Respiratory: positive Chest non-tender, No respiratory distress and Other (Cough) Cardiovascular: positive Regular rate & rhythm and No murmur Abdomen: positive Non-tender, No organomegaly, Nml bowel sounds and No distention Skin: positive Color nml and No rash Extremities: positive Non-tender, Full ROM and Nml appearance Neurologic/Psychiatric: positive Oriented x3 and CN's nml (2-12) Lab Results 07/29/24 05:30 07/30/24 05:38 Other Labs: Lab Results x24hrs 07/30/24 Range/Units 05:38 Sodium 137 (135-145) mmol/L Potassium 3.8 (3.5-4.5) mmol/L Chloride 100 L (101-111) mmol/L Carbon Dioxide 33 H (21-32) mmol/L Anion Gap 4.0 L (6-13) BUN 30 H (6-20) mg/dL Creatinine 0.7 (0.6-1.3) mg/dL Estimated GFR (MDRD) 80 L (>89) Glucose 98 (74-104) mg/dL Calcium 9.0 (8.5-10.3) mg/dL Diagnostic Imaging Diagnostic Imaging Results: positive Final report reviewed Assessment/Plan Problem List (1) Acute hypoxic respiratory failure: Impression: Recent chest CT done on 07/27/2024 indicates new left lower lobe collapse, bilateral patchy groundglass opacities have increased. Was negative secondary to infectious etiology. No honeycombing. No obvious sign of Interstitial lung disease Continue DuoNebs and hypertonic saline treatment Patient will need oxygen saturation eval before discharge. Off O2 at rest, 2L NC while walking (2) Pneumonia: Impression: failed pneumonia directed antibiotics with azithromycin and Augmentin. Pt now cefepime. CT chest -> LLL collapse, mucus plugging. On Hypertonic saline nebs, acapella, abx. Pt is often non compliant. MRSA swab, strep antigen and viral respiratory panel ->negative . DC vancomycin, continue cefepime. 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 Continue patient on IV maintenance fluid.
[2024-07-30] MEDS: SODIUM CHLORIDE 0.9% 1,000 ML IV SCH ×2 (09:45→10:52)
[2024-07-30] MEDS: MELATONIN 3 MG TABLET PO SCH (21:16)
[2024-07-31] MEDS: MELATONIN 3 MG TABLET PO PRN (00:35)
[2024-07-31 07:17] LABS: BASOPHILS # (AUTO) 0.1 10^3/uL (0.0-0.1); BASOPHILS % (AUTO) 1.2 %; EOSINOPHILS # (AUTO) 1.1 10^3/uL (0.0-0.7); EOSINOPHILS % (AUTO) 16.7 %; HCT - HEMATOCRIT 31.8 % (37.0-47.0); HGB - HEMOGLOBIN 10.4 g/dL (12.0-16.0); LYMPHOCYTES # (AUTO) 1.4 10^3/uL (1.5-3.5); MEAN CORPUSCULAR HEMOGLOBIN 31.1 pg (27.0-31.0); MEAN CORPUSCULAR HGB CONC 32.7 g/dL (32.0-36.0); MEAN CORPUSCULAR VOLUME 95.2 fL (81.0-99.0); MONOCYTES # (AUTO) 0.6 10^3/uL (0.0-1.0); MONOCYTES % (AUTO) 9.1 %; NEUTROPHILS # (AUTO) 3.4 10^3/uL (1.5-6.6); NEUTROPHILS % (AUTO) 51.2 %; PLT - PLATELET COUNT 317 10^3/uL (130-450); RED BLOOD COUNT 3.34 10^6/uL (4.20-5.40); RED CELL DISTRIBUTION WIDTH 11.9 % (12.0-15.0); WHITE BLOOD COUNT 6.6 x10^3/uL (4.8-10.8)
[2024-07-31 07:27] LABS: CALCIUM 8.6 mg/dL (8.5-10.3); CREATININE 0.5 mg/dL (0.6-1.3); POTASSIUM 3.6 mmol/L (3.5-4.5)
[2024-07-31 07:49] LABS: DIFFERENTIAL COMMENT MANUAL=AUTO DIFF
--- NOTE | 2024-07-31 07:50 | XRAY Report ---
PROCEDURE: XR Chest 1V INDICATIONS: Pneumonia TECHNIQUE: One view of the chest was acquired. COMPARISON: Chest x-ray July 23, 2024. CT chest July 27, 2024 FINDINGS: Again noted is the consolidation in the left lower hemithorax likely represents a combination of left lower lobe atelectasis/collapse or consolidation, pneumonia with possible small pleural effusion. [id number] bilateral diffuse peribronchial thickening with diffuse patchy opacities most nota cliff in the lower lobes left greater than right, suspicious for multifocal pneumonia, bronchopneumonia . Bronchitis, viral infection, atypical pneumonia or other process could be considered. Follow-up is needed. Moderately prominent demetrius, pulmonary vascular congestion and/or hilar lymph nodes unchanged. Mild calcifications of the aortic arch unchanged. No pneumothorax. Cardiopericardial silhouette within normal limits in size. IMPRESSION: Left lower lobe consolidation as discussed above similar to the prior exams. Moderate severe peribronchial thickening and opacities as discussed above. Follow-up is needed. If symptoms persist or worsen, CT chest with IV contrast could be performed. Reviewed by: Scott De La Paz MD on 07/31/2024 7:49 AM PST Approved by: Scott De La Paz MD on 07/31/2024 7:49 AM PST Station ID: [id number]
[2024-07-31] MEDS ORDERED: SODIUM CHLORIDE 0.9% 1,000 ML IV SCH (09:00)
--- NOTE | 2024-07-31 11:00 | Discharge Summary ---
Discharge Summary Admit Date: 07/20/24 Discharge Date: 07/31/24 Discharging Provider: dr snyder Primary Care Provider: Mark Anthony castillo Code Status: Do Not Attempt Resuscitation DIAGNOSES Admission Diagnoses: Acute hypoxic respiratory failure Community-acquired pneumonia Hyponatremia Discharge Diagnoses with Status of Each Condition: Acute hypoxic respiratory failure - Resolved Cap - In hospital IV ABX, continue p.o. ABX at home Hyponatremia - Resolved HPI History of Present Illness: This patient was discussed at multiple disciplinary rounds in detail. Exam was performed separately by me today. I reviewed the documentation for this patient including history, physical exam, laboratory analysis, imaging, and clinical assessment and treatment plan. I have discussed the management of the patient with VAMSI Jenkins. There are no changes. HOSPITAL COURSE Hospital Course: Patient was admitted for community-acquired pneumonia with chronic cough. She also has a history of asthma Patient was started on p.o. medications Augmentin and azithromycin. P.o. medications failed to resolve pneumonia. Patient was started on cefepime IV after chest x-ray indicated residual left lower lower lobe opacities and consolidation With persistent O2 desaturation at rest. Patient was also started on hypertonic saline Nebulizer, incentive spirometry and Acapella. Patient's Supplemental O2 requirement Resolved and patient with a O2 baseline, Room air, at discharge. Chest x-ray done on the discharge indicates persistent left lower lobe consolidation, moderate to severe bilateral diffuse peribronchial thickening suspicious for multifocal pneumonia. Patient is to follow-up with primary care physician within 10 days for resolution of pneumonia. Patient is at high risk for readmission Patient hyponatremia resolved with IV hydration. Patient was discharged in stable condition with 5 days of p.o. azithromycin Levaquin. ALLERGIES Allergies Allergy/AdvReac Type Severity Reaction Status Date / Time No Known Drug Allergies Allergy Verified 07/20/24 09:53 MEDICATIONS Ambulatory Orders Medication Instructions Recorded Confirmed ipratropium 0.5 mg-albuterol 3 mg 3 ml inhalation QID PRN shortness 07/16/24 07/20/24 (2.5 mg base)/3 mL nebulization of breath #90 mL soln albuterol sulfate 2.5 mg/3 mL 2.5 mg inhalation Q4H PRN 07/17/24 07/20/24 (0.083 %) solution for nebulization shortness of breath or wheezing albuterol sulfate 90 mcg/actuation 1 puff inhalation QID PRN 07/17/24 07/20/24 aerosol inhaler shortness of breath or wheezing fluticasone propionate 115 2 puff inhalation DAILY 07/17/24 07/20/24 mcg-salmeterol 21 mcg/actuation HFA inhaler (Advair HFA) carbamazepine 300 mg 300 mg PO DAILY 07/20/24 07/20/24 capsule,extended release [id number] fluticasone propionate 50 2 spray intranasal BID 07/20/24 07/20/24 mcg/actuation nasal spray,suspension azithromycin 500 mg tablet 500 mg PO DAILY 5 days #5 tabs 07/31/24 dextromethorphan-guaifenesin 10 10 ml PO Q6HR PRN Cough #500 mL 07/31/24 mg-100 mg/5 mL oral syrup guaifenesin 600 mg tablet, 1,200 mg (2 x 600 mg) PO BID #30 07/31/24 extended release 12 hr (Mucinex) tabs levofloxacin 750 mg tablet 750 mg PO DAILY #5 tabs 07/31/24 melatonin 3 mg tablet 6 mg (2 x 3 mg) PO QPM PRN 07/31/24 Insomnia #30 tabs PHYSICAL EXAM AT DISCHARGE General Appearance: positive No acute distress and Alert Eyes Bilateral: positive Normal inspection, PERRL and EOMI ENT: positive ENT inspection nml and Pharynx nml Neck: positive Nml inspection, Thyroid nml and Trachea midline Respiratory: positive Chest non-tender and No respiratory distress Cardiovascular: positive Regular rate & rhythm and No murmur Abdomen: positive Non-tender, No organomegaly and No distention Skin: positive Color nml, No rash and Warm Extremities: positive Non-tender, Full ROM and No pedal edema Neurologic/Psychiatric: positive Oriented x3 and CN's nml (2-12) LABS 07/31/24 06:57 07/31/24 06:57 DIAGNOSTIC IMAGING Diagnostic Imaging Results: Final report reviewed FOLLOW UP Follow Up: Primary care physician within 10 days. Patient is at high risk for readmission TIME SPENT Time Spent in Discharge (Minutes): 40 Discharge Plan Discharge Patient Disposition: 01 Home, Self Care Medically Cleared Date:: 07/31/24 Prescriptions: New guaifenesin [Mucinex] 600 mg Tablet Extended Release 12hr 1,200 mg PO BID Qty: 30 0RF dextromethorphan-guaifenesin 10-100 mg/5 mL Syrup 10 ml PO Q6HR PRN (Reason: Cough) Qty: 500 0RF melatonin 3 mg Tablet 6 mg PO QPM PRN (Reason: Insomnia) Qty: 30 0RF azithromycin 500 mg tablet 500 mg PO DAILY 5 Days Qty: 5 0RF levofloxacin 750 mg tablet 750 mg PO DAILY Qty: 5 0RF Continued ipratropium-albuterol 0.5 mg-3 mg(2.5 mg base)/3 mL solution for nebulization 3 ml inhalation QID PRN (Reason: shortness of breath) Qty: 90 0RF fluticasone propionate 50 mcg/actuation spray,suspension 2 spray INTRANASAL BID carbamazepine 300 mg capsule, ER multiphase 12 hr 300 mg PO DAILY albuterol sulfate 2.5 mg /3 mL (0.083 %) solution for nebulization 2.5 mg inhalation Q4H PRN (Reason: shortness of breath or wheezing) Rx Instructions: Inhale 3mL using nebulizer every four hours as needed for wheezing fluticasone propion-salmeterol [Advair HFA] 115-21 mcg/actuation HFA aerosol inhaler 2 puff inhalation DAILY Rx Instructions: Inhale 2 puffs by mouth twice daily. Rinse mouth after use. albuterol sulfate 90 mcg/actuation HFA aerosol inhaler 1 puff inhalation QID PRN (Reason: shortness of breath or wheezing) Rx Instructions: As directed Activity Restrictions: No Restrictions Diet: Regular Health Concerns: You were admitted to this hospital on 07/20/2024 for new onset of pneumonia. This was originally treated with p.o. Augmentin and azithromycin. Repeat chest x-ray indicated residual left lower lobe opacity with possible mucous plugging. you were started on IV cefepime on 07/28/2024. You will continue with azithromycin and levoquin for 5 more days. Hypertonic saline inhalation was added to break up the consolidation. Walking desat study indicated that you are now able to be off supplemental oxygen while exercising We talked about your need to continue using acapella device (blue cough assist cucumber) and incentive spirometer device. You need to follow up with your PCP within 10 days to follow up on the resolution of your penumonia and follow up for a referral to a carpenter assistant. Plan of Treatment: Azithromycin, Levaquin p.o. for 5 more days Print Language: Ethiopian Patient Instructions: Pneumonia Prevent, Coughing Techniques Dc Stand Alone Forms: PCP List
[2024-07-31] MEDS: guaiFENesin/CODEINE 5 ML UDC PO PRN (11:52)
[2024-07-31 11:53] VITALS: O2SAT 97
--- NOTE | 2024-08-04 23:54 | ED Physician Documentation ---
ED Addendum Addendum Addendum: Final impression: 1. COPD exacerbation 2. Hypoxia Discharge Plan Discharge Patient Disposition: 66 [facility] DC/Xfer Interventions: ED Admission Assessment Last Done: 07/20/24 15:50
== END 2024-07-31 15:08 | disposition home or self-care (01) | DRG 189 ==
LOC: ED 09:46 → MS2 12:03
PROVIDERS: ADMIT Physician Assistant Medical; ATTEND Physician Assistant Medical
DX: Z85.3 Personal history of malignant neoplasm of breast; G50.0 Trigeminal neuralgia; R09.02 Hypoxemia; J44.0 Chronic obstructive pulmonary disease with (acute) lower respiratory infection; R79.89 Other specified abnormal findings of blood chemistry; Z87.01 Personal history of pneumonia (recurrent); I51.7 Cardiomegaly; J44.1 Chronic obstructive pulmonary disease with (acute) exacerbation; J18.9 Pneumonia, unspecified organism; J96.01 Acute respiratory failure with hypoxia; Z66 Do not resuscitate; E87.1 Hypo-osmolality and hyponatremia; I44.7 Left bundle-branch block, unspecified